=== PATIENT | female | born 1990 | race African-American/Black ===

== ENCOUNTER 2019-01-31 | Emergency (ER) | payer SELFPAY ==
--- NOTE | 2019-01-31 01:56 | ER Document Report ---
ED Medical Screen (RME) - General Chief Complaint: Sore Throat Stated Complaint: SORE THROAT Time Seen by Provider: 01/31/19 01:51 Mode of Arrival: Ambulatory Information source: Patient Notes: 28-year-old female comes in with report of 2-week history of pharyngitis with mild pain with swallowing and minimal cough and congestion. She is also had intermittent low-grade fevers. The patient questions being around someone who has had the flu 2 weeks ago. The patient denies any chest pain or difficulty breathing. She also had some pain left lower quadrant and some mild back pain more right greater than left. She denies any sharp pain and states pain is intermittent. No vaginal discharge or bleeding. Her last menstrual. Was January 20. The patient denies any neck stiffness. On exam throat does show some moderate tonsillar enlargement but no obvious abscess. Dentition intact. Neck shows anterior cervical adenopathy bilateral. Cardiovascular regular rate and rhythm without appreciable murmur gallop or rub Lungs clear to auscultation bilaterally Abdomen unable to reproduce any tenderness. There is no obvious mass. She describes her previous pain of left lower abdominal region but no current pain. Back mild right greater than left CVA discomfort. Impression viral pharyngitis but must rule out strep. The patient is beyond timeframe for treatment for the flu. Must also consider mono given the lymphadenopathy mentioned. No obvious spleno megaly appreciated. Abdomen completely nontender. Monospot, CBC, CMP strep test UA and test. See partners note for further evaluation and care. TRAVEL OUTSIDE OF THE [place] IN LAST 30 DAYS: No - Related Data Allergies/Adverse Reactions: No Known Allergies Allergy (Unverified 09/07/16 15:08) Past Medical History - Immunizations Hx Diphtheria, Pertussis, Tetanus Vaccination: Yes Physical Exam - Vital signs Vitals: Temp Pulse Resp BP Pulse Ox 98.2 F 82 20 144/90 H 99 01/31/19 00:34 01/31/19 00:34 01/31/19 00:34 01/31/19 00:34 01/31/19 00:34 Course - Vital Signs Vital signs: Temp Pulse Resp BP Pulse Ox 98.2 F 82 20 144/90 H 99 01/31/19 00:34 01/31/19 00:34 01/31/19 00:34 01/31/19 00:34 01/31/19 00:34
[2019-01-31 02:48] LABS: ABSOLUTE EOSINOPHILS # (AUTO) 0.2 10^3/uL (0.0-0.6); ABSOLUTE LYMPHOCYTES (AUTO) 1.3 10^3/uL (0.5-4.7); ABSOLUTE MONOCYTES (AUTO) 0.6 10^3/uL (0.1-1.4); ABSOLUTE NEUT (AUTO) 2.1 10^3/uL (1.7-8.2); BASOPHILS % (AUTO) 0.2 % (0-2); EOSINOPHILS % (AUTO) 4.4 % (0-6); HEMATOCRIT 33.7 % (36.0-47.0); LYMPHOCYTES % (AUTO) 30.6 % (13-45); MEAN CORPUSCULAR HEMOGLOBIN 26.8 pg (27.0-33.4); MEAN CORPUSCULAR HGB CONC 32.6 g/dL (32.0-36.0); MEAN CORPUSCULAR VOLUME 82 fl (80-97); MONOCYTES % (AUTO) 14.1 % (3-13); PLATELET COUNT 263 10^3/uL (150-450); RED BLOOD COUNT 4.09 10^6/uL (3.72-5.28); SEGMENTED NEUTROPHILS % (AUTO) 50.7 % (42-78); TOTAL CELLS COUNTED % (AUTO) 100 %; WHITE BLOOD COUNT 4.2 10^3/uL (4.0-10.5)
[2019-01-31 03:04] LABS: APPEARANCE,URINE SLIGHTLY-CLOUDY; BILIRUBIN,URINE NEGATIVE (NEGATIVE); COLOR,URINE YELLOW; GLUCOSE, URINE NEGATIVE (NEGATIVE); KETONES,URINE NEGATIVE (NEGATIVE); LEUKOCYTE ESTERASE,URINE NEGATIVE (NEGATIVE); NITRITE,URINE NEGATIVE (NEGATIVE); PROTEIN,URINE NEGATIVE (NEGATIVE); URINE SPECIFIC GRAVITY 1.025; UROBILINOGEN,URINE NEGATIVE mg/dL (<2.0)
[2019-01-31 03:08] LABS: ALANINE AMINOTRANSFERASE 29 U/L (9-52); ALBUMIN 3.9 g/dL (3.5-5.0); ALKALINE PHOSPHATASE 60 U/L (38-126); ANION GAP 9 (5-19); ASPARTATE AMINO TRANSFERASE 25 U/L (14-36); BILIRUBIN,DIRECT 0.2 mg/dL (0.0-0.4); BILIRUBIN,TOTAL 0.3 mg/dL (0.2-1.3); BLOOD UREA NITROGEN 11 mg/dL (7-20); CALCIUM 9.2 mg/dL (8.4-10.2); CARBON DIOXIDE 25 mmol/L (22-30); CHLORIDE 107 mmol/L (98-107); GLUCOSE 81 mg/dL (75-110); SODIUM 141.1 mmol/L (137-145)
[2019-01-31] MEDS ORDERED: DEXAMETHASONE SOD PHOS INJ 10 MG/1 ML VIAL IM ONE (03:57)
--- NOTE | 2019-01-31 04:01 | ER Document Report ---
HPI - HPI Time Seen by Provider: 01/31/19 01:51 Pain Level: 1 Context: Patient is a 28-year-old female that comes to the emergency department for chief complaint of sore throat, pain in the front of her neck, and intermittent chills. She reports mild congestion and occasional cough as well. Symptoms present for almost 2 weeks now. She states she was exposed to someone who had "the flu" about 2 weeks ago. She denies any chest pain, difficulty breathing, headache, abdominal pain, difficulty swallowing or breathing. She denies any current symptoms except for pain when she swallows. LMP 2 weeks ago. Only past medical history is anxiety/depression. - REPRODUCTIVE Reproductive: DENIES: : Past Medical History - General Information source: Patient - Social History Smoking Status: Never Smoker Frequency of alcohol use: None Drug Abuse: None Lives with: Family Family History: Reviewed & Not Pertinent Psychiatric Medical History: Reports: Hx Anxiety, Hx Depression - Immunizations Hx Diphtheria, Pertussis, Tetanus Vaccination: Yes Vertical Provider Document - CONSTITUTIONAL General Appearance: WD/WN, No Apparent Distress - INFECTION CONTROL TRAVEL OUTSIDE OF THE [place] IN LAST 30 DAYS: No - HEENT HEENT: Atraumatic, Normocephalic. negative: Normal ENT Exam - Mild erythema and enlargement of bilateral tonsils. Normal uvula. No peritonsillar abscess. Unremarkable oropharyngeal exam otherwise. Normal ENT exam otherwise. - NECK Neck: Other - Bilateral anterior cervical adenopathy - RESPIRATORY Respiratory: Breath Sounds Normal, No Respiratory Distress - CARDIOVASCULAR Cardiovascular: Regular Rate, Regular Rhythm - GI/ABDOMEN Gastrointestinal: Abdomen Soft, Abdomen Non-Tender - BACK Back: Normal Inspection - MUSCULOSKELETAL/EXTREMETIES Musculoskeletal/Extremeties: MAEW, FROM, Non-Tender - NEURO Level of Consciousness: Awake, Alert, Appropriate - DERM Integumentary: Warm, Dry, No Rash Course - Re-evaluation Re-evalutation: Evaluation shows tonsillitis and anterior cervical adenopathy. Otherwise unremarkable. No sign of splenomegaly. No evidence of abscess. CBC shows normal white blood cell count, elevation of monocytes. Chemistry unremarkable, urine unremarkable, negative. Strep is negative. [place] was negative. Evaluation is more consistent with a viral illness, possible mononucleosis. Discussed this with patient. Provided with dexamethasone, discussed precautions, expectations, and return precautions. Patient states understanding and agreement. - Vital Signs Vital signs: Temp Pulse Resp BP Pulse Ox 98.2 F 82 20 144/90 H 99 01/31/19 00:34 01/31/19 00:34 01/31/19 00:34 01/31/19 00:34 01/31/19 00:34 - Laboratory Result Diagrams: 01/31/19 02:30 01/31/19 02:30 Laboratory results interpreted by me: 01/31/19 02:30 Hgb 11.0 L Hct 33.7 L MCH 26.8 L RDW 15.0 H Monocytes % 14.1 H Discharge - Discharge Clinical Impression: Tonsillitis, Anterior cervical adenopathy Pharyngitis Qualifiers: Pharyngitis/tonsillitis etiology: unspecified etiology Qualified Code(s): J02.9 - Acute pharyngitis, unspecified Condition: Stable Disposition: HOME, SELF-CARE Additional Instructions: Your work-up is consistent with a viral cause of your tonsillitis, possibly mononucleosis. This takes time to resolve, you have been treated to help this resolve faster. Avoid any activity which could cause trauma to her abdomen because for the next several weeks trauma to the abdomen could result in rupture of your spleen. Return immediately if you have severe abdominal pain. Take [id number] medication such as Tylenol, ibuprofen. Drink plenty fluids and rest. Follow-up with primary care. Return for any other concerning or worsening symptoms.
[2019-01-31 04:45] VITALS: BP 147/87
== END 2019-01-31 04:46 | disposition home or self-care (01) ==
LOC: ER
DX: J02.9 Acute pharyngitis, unspecified (principal); R59.0 Localized enlarged lymph nodes; M54.2 Cervicalgia
CPT/HCPCS: 99283; 96372; 36415; 87070; 87880; 85025; 81025; 87077; 86308; 80053; 81001; J1100

== ENCOUNTER 2019-02-20 19:50 | Emergency (ER) | payer SELFPAY ==
--- NOTE | 2019-02-21 00:55 | ER Document Report ---
ED General - General Chief Complaint: Sore Throat Stated Complaint: SORE THROAT Time Seen by Provider: 02/21/19 00:18 Mode of Arrival: Ambulatory Information source: Patient TRAVEL OUTSIDE OF THE [place] IN LAST 30 DAYS: No - HPI Patient complains to provider of: Swollen tonsils, body ache, thirstiness, fatigue, rash, sore throat Onset: Other - 1 to 2 weeks Onset/Duration: Persistent Severity: Mild Pain Level: 2 Associated symptoms: Body/muscle aches, Sore throat. denies: Chills, Nonproductive cough, Productive cough, Diarrhea, Fever, Nausea, Vomiting Notes: 28-year-old -[place] female coming in today with swollen, thirstiness, fatigue, rash, sore throat. Hurts to swallow. Seen here a week ago. Tested for strep and mono. Both negative. Patient continues to have swollen tonsils. Also concerned about some sexual encounters that she had with some in while she was in a manic episode and not taking her bipolar meds. Wanting a test for HIV and other STDs. - Related Data Allergies/Adverse Reactions: No Known Allergies Allergy (Unverified 09/07/16 15:08) Past Medical History - General Information source: Patient - Social History Smoking Status: Smoker,Current Status Unk Family History: Reviewed & Not Pertinent Renal/ Medical History: Denies: Hx Peritoneal Dialysis Psychiatric Medical History: Reports: Hx Anxiety, Hx Depression - Immunizations Hx Diphtheria, Pertussis, Tetanus Vaccination: Yes Review of Systems - Review of Systems Notes: Constitutional: No fevers. No chills. Positive for fatigue, positive for malaise, positive for myalgias EENT: No eye redness. No eye pain. No ear pain. Positive for sore throat and swollen tonsils Cardiovascular: No chest pain. No palpitations. Respiratory: No cough. No shortness of breath. No respiratory distress. Gastrointestinal: No abdominal pain. No nausea, vomiting, or diarrhea. Genitourinary: Atraumatic. No lesions. No pain. No discharge. Musculoskeletal: Atraumatic. No swelling. No deformities. Skin: No rash or lesions. Lymphatic: No swollen lymph nodes. Neurologic: No headache. No syncope. Psychiatric: No suicidal or homicidal ideation. Physical Exam - Vital signs Vitals: Temp Pulse Resp BP Pulse Ox 98.8 F 82 16 146/94 H 100 02/20/19 20:43 02/20/19 20:43 02/20/19 20:43 02/20/19 20:43 02/20/19 20:43 - Notes Notes: General: Well-developed, well-nourished. In no acute distress. Non-toxic appearing. Cardiac: Well-perfused. Regular rate and rhythm. No murmurs, rubs, or gallops. Pulmonary: No respiratory distress. No cyanosis. Bilateral lung fiels are clear to auscultation. Abdominal: Non-distended. Non-rigid. Bowels sounds are present in all four quadrants. No guarding or rebound. HEENT: Head is atraumatic. Conjunctivae not reddened. No tearing. PERRL. EOMI. Orbits atraumatic. No periorbital swelling or erythema. Oropharynx is without erythema, swelling, or exudates. 2+ erythematous tonsils without exudates Neck: Supple. No adenopathy. No meningismus. Dermatologic: Warm with good turgor. No rash. Atraumatic. Chest: Atraumatic. No chest wall tenderness to palpation. Musculoskeletal: Moves all extremities well. No range of motion deficits. no muscular or joint tenderness. No paraspinal muscle tenderness. no midline spinal tenderness or step-off. Genitourinary: Examination deferred Neurologic: No gross neurologic deficits. Psychiatric: Normal mood. Course - Re-evaluation Re-evalutation: 02/21/19 01:54 Basic labs ordered, strep, mono, basic metabolic profile and CBC also. We will send a urinalysis for GC and chlamydia. I indicated that we do not typically test for all of the STDs. Recommended that she follow-up with the [facility] for that. She does not have any active symptoms of STDs just a concern over some choices that she made while she was not taking her bipolar meds. - Vital Signs Vital signs: Temp Pulse Resp BP Pulse Ox 98.6 F 78 16 142/92 H 100 02/21/19 01:50 02/21/19 01:50 02/21/19 01:50 02/21/19 01:50 02/21/19 01:50 - Laboratory Result Diagrams: 02/21/19 01:15 02/21/19 01:15 Discharge - Discharge Clinical Impression: Viral syndrome, Swelling of tonsil, History of unprotected sex Condition: Good Disposition: HOME, SELF-CARE Instructions: Viral Syndrome ([facility]), Tonsillitis ([facility]) Additional Instructions: Please follow-up for further testing in the [facility]. Prescriptions: Naproxen 500 mg PO BID 5 Days #10 tablet Prednisone 50 mg PO DAILY #5 tablet Referrals: [facility] [Provider Group] - Follow up as needed
[2019-02-21 01:51] VITALS: BP 142/92
[2019-02-21 02:01] LABS: APPEARANCE,URINE SLIGHTLY-CLOUDY; BILIRUBIN,URINE NEGATIVE (NEGATIVE); COLOR,URINE YELLOW; GLUCOSE, URINE NEGATIVE (NEGATIVE); KETONES,URINE NEGATIVE (NEGATIVE); LEUKOCYTE ESTERASE,URINE NEGATIVE (NEGATIVE); NITRITE,URINE NEGATIVE (NEGATIVE); PROTEIN,URINE NEGATIVE (NEGATIVE); URINE SPECIFIC GRAVITY 1.015; UROBILINOGEN,URINE NEGATIVE mg/dL (<2.0)
[2019-02-21 02:01] LABS: HEMATOCRIT 33.7 % (36.0-47.0); HEMOGLOBIN 10.9 g/dL (12.0-15.5); MEAN CORPUSCULAR HEMOGLOBIN 26.5 pg (27.0-33.4); MEAN CORPUSCULAR HGB CONC 32.2 g/dL (32.0-36.0); MEAN CORPUSCULAR VOLUME 82 fl (80-97); RED CELL DISTRIBUTION WIDTH 15.1 % (11.5-14.0); WHITE BLOOD COUNT 2.7 10^3/uL (4.0-10.5)
[2019-02-21 02:15] LABS: ANION GAP 8 (5-19); BLOOD UREA NITROGEN 10 mg/dL (7-20); CALCIUM 9.2 mg/dL (8.4-10.2); CARBON DIOXIDE 25 mmol/L (22-30); CHLORIDE 105 mmol/L (98-107); GLUCOSE 82 mg/dL (75-110); POTASSIUM 3.7 mmol/L (3.6-5.0); SODIUM 138.3 mmol/L (137-145)
[2019-02-21 02:16] LABS: ABSOLUTE MONOCYTES # (MANUAL) 0.5 10^3/uL (0.1-1.4); ABSOLUTE NEUTROPHILS# (MANUAL) 1.2 10^3/uL (1.7-8.2); ANISOCYTOSIS SLIGHT; BASOPHILS % (MANUAL) 0 % (0-2); EOSINOPHILS % (MANUAL) 1 % (0-6); LYMPHOCYTES % (MANUAL) 37 % (13-45); MONOCYTES % (MANUAL) 17 % (3-13); PLATELET CLUMPS PRESENT; PLATELET COMMENT ADEQUATE; SEGMENTED NEUTROPHILS % (MAN) 44 % (42-78); TOTAL CELLS COUNTED 100
[2019-02-21 02:17] LABS: PLATELET COUNT 237 10^3/uL (150-450)
== END 2019-02-21 02:55 | disposition home or self-care (01) ==
LOC: ER 19:50
DX: J35.1 Hypertrophy of tonsils (principal); B34.9 Viral infection, unspecified; Z20.2 Contact with and (suspected) exposure to infections with a predominantly sexual mode of transmission; J02.9 Acute pharyngitis, unspecified; R63.1 Polydipsia; R53.83 Other fatigue; R21 Rash and other nonspecific skin eruption; M79.10 Myalgia, unspecified site; R53.81 Other malaise
CPT/HCPCS: 36415; 80048; 81001; 85025; 86308; 87070; 87077; 87880; 99283

== ENCOUNTER 2019-04-03 11:18 | Emergency (ER) | payer MEDICAID ==
[2019-04-03 11:29] VITALS: BP 105/52
--- NOTE | 2019-04-03 11:34 | ER Document Report ---
ED Medical Screen (RME) - General Chief Complaint: Suicidal Ideation Stated Complaint: SUICIDAL IDEATION Time Seen by Provider: 04/03/19 11:27 Mode of Arrival: Ambulatory Information source: Patient Notes: 28-year-old female presented to ED for thoughts of suicide. She states she has not made a plan yet but she has had thoughts of suicide. She states she has had thoughts of suicide in the past. She states she recently lost her job she is having problems at home and then she was about 10 minutes late for her doctor's appointment and they said she had to reschedule with me she is now we will have her medications and things are going to just get a month not worse and she is just thinking about injecting. She said there is too much going on right now she cannot handle it. Patient is very tearful at this time. I have greeted and performed a rapid initial assessment of this patient. A comprehensive ED assessment and evaluation of the patient, analysis of test results and completion of medical decision making process will be conducted by an additional ED providers. Dictation of this chart was performed using voice recognition software; therefore, there may be some unintended grammatical errors. TRAVEL OUTSIDE OF THE [place] IN LAST 30 DAYS: No - Related Data Allergies/Adverse Reactions: No Known Allergies Allergy (Verified 04/03/19 11:20) Past Medical History Renal/ Medical History: Denies: Hx Peritoneal Dialysis Psychiatric Medical History: Reports: Hx Anxiety, Hx Bipolar Disorder, Hx Depression - Immunizations Hx Diphtheria, Pertussis, Tetanus Vaccination: Yes
[2019-04-03 12:00] LABS: ABSOLUTE EOSINOPHILS # (AUTO) 0.1 10^3/uL (0.0-0.6); ABSOLUTE LYMPHOCYTES (AUTO) 1.3 10^3/uL (0.5-4.7); ABSOLUTE MONOCYTES (AUTO) 0.4 10^3/uL (0.1-1.4); ABSOLUTE NEUT (AUTO) 2.7 10^3/uL (1.7-8.2); BASOPHILS % (AUTO) 0.4 % (0-2); EOSINOPHILS % (AUTO) 1.4 % (0-6); HEMATOCRIT 33.2 % (36.0-47.0); HEMOGLOBIN 10.9 g/dL (12.0-15.5); LYMPHOCYTES % (AUTO) 29.3 % (13-45); MEAN CORPUSCULAR HEMOGLOBIN 27.2 pg (27.0-33.4); MEAN CORPUSCULAR HGB CONC 32.9 g/dL (32.0-36.0); MEAN CORPUSCULAR VOLUME 83 fl (80-97); MONOCYTES % (AUTO) 8.1 % (3-13); PLATELET COUNT 295 10^3/uL (150-450); RED BLOOD COUNT 4.02 10^6/uL (3.72-5.28); RED CELL DISTRIBUTION WIDTH 15.2 % (11.5-14.0); SEGMENTED NEUTROPHILS % (AUTO) 60.8 % (42-78); TOTAL CELLS COUNTED % (AUTO) 100 %; WHITE BLOOD COUNT 4.4 10^3/uL (4.0-10.5)
[2019-04-03 12:06] LABS: APPEARANCE,URINE CLOUDY; BILIRUBIN,URINE NEGATIVE (NEGATIVE); COLOR,URINE YELLOW; GLUCOSE, URINE NEGATIVE (NEGATIVE); KETONES,URINE NEGATIVE (NEGATIVE); LEUKOCYTE ESTERASE,URINE TRACE (NEGATIVE); NITRITE,URINE NEGATIVE (NEGATIVE); PROTEIN,URINE 30 mg/dL (NEGATIVE); URINE SPECIFIC GRAVITY 1.024; UROBILINOGEN,URINE NEGATIVE mg/dL (<2.0)
[2019-04-03 12:19] LABS: URINE AMPHETAMINES SCREEN NEGATIVE; URINE BARBITURATES SCREEN NEGATIVE; URINE BENZODIAZEPINES SCREEN NEGATIVE; URINE COCAINE SCREEN NEGATIVE; URINE MARIJUANA (THC) SCREEN UNCONFIRMED POSITIVE; URINE METHADONE SCREEN NEGATIVE; URINE PHENCYCLIDINE SCREEN NEGATIVE
[2019-04-03 12:26] LABS: ALANINE AMINOTRANSFERASE 21 U/L (9-52); ALBUMIN 4.5 g/dL (3.5-5.0); ALKALINE PHOSPHATASE 52 U/L (38-126); ANION GAP 10 (5-19); ASPARTATE AMINO TRANSFERASE 25 U/L (14-36); BILIRUBIN,DIRECT 0.2 mg/dL (0.0-0.4); BLOOD UREA NITROGEN 12 mg/dL (7-20); CALCIUM 9.7 mg/dL (8.4-10.2); CARBON DIOXIDE 24 mmol/L (22-30); CHLORIDE 106 mmol/L (98-107); GLUCOSE 73 mg/dL (75-110); POTASSIUM 3.9 mmol/L (3.6-5.0); SODIUM 139.6 mmol/L (137-145); TOTAL PROTEIN 7.4 g/dL (6.3-8.2)
[2019-04-03 12:27] LABS: ACETAMINOPHEN < 10 ug/mL (10-30); ALCOHOL < 10 mg/dL (NONE DETECTED); SALICYLATE < 1.0 mg/dL (2.0-20.0)
--- NOTE | 2019-04-03 13:33 | ER Document Report ---
Entered by DALIA ARRIAGA SCRIBE 04/03/19 1241 Acting as scribe for:KUSH RAY MD ED General <ALEXX WOLF - Last Filed: 04/03/19 13:38> - General Mode of Arrival: Ambulatory TRAVEL OUTSIDE OF THE [place] IN LAST 30 DAYS: No <KUSH RAY - Last Filed: 04/03/19 14:07> - General Chief Complaint: Suicidal Ideation Stated Complaint: SUICIDAL IDEATION Time Seen by Provider: 04/03/19 11:27 Primary Care Provider: [facility] [Outside] - Follow up as needed [facility] [Outside] - 04/17/19 (Therapy appoitnment at [facility] on 04/08/19 at 1500.) IDALIA SAINZ MD [Primary Care Provider] - Follow up as needed Notes: Patient is a 28-year-old female presenting to the emergency department complaining of depression. Patient states that she had an appointment today to refill her medication she is currently taking for depression, she missed her appointment. Patient states that she is currently taking Celexa and Lamictal and that she is close to running out. Patient states that she was recently fired from her job at [employer], and that she has been having a lot of arguments at home with family. Patient states that she stays in a 3 bedroom apartment with her 10-year-old child, her brother and [id number]. Patient states that her last menstrual period was 2 weeks ago. (DALIA ARRIAGA) Patient is a 28-year-old female presenting to the emergency department complaining of depression. Patient states that she had an appointment today to refill her medication she is currently taking for depression, she missed her appointment. Patient states that she is currently taking Celexa and Lamictal and that she is close to running out. Patient states that she was recently fired from her job at [employer], and that she has been having a lot of arguments at home with family. Patient states that she stays in a 3 bedroom apartment with h er 10-year-old child, her brother and [id number]. Patient states that her last menstrual period was 2 weeks ago. (KUSH RAY) - Related Data Allergies/Adverse Reactions: No Known Allergies Allergy (Verified 04/03/19 11:20) Past Medical History - General Information source: Patient - Social History Smoking Status: Never Smoker Chew tobacco use (# tins/day): No Frequency of alcohol use: None Drug Abuse: Marijuana Family History: Reviewed & Not Pertinent Patient has suicidal ideation: No Patient has homicidal ideation: No Psychiatric Medical History: Reports: Hx Anxiety, Hx Bipolar Disorder, Hx Depression Past Surgical History: Reports: Hx Orthopedic Surgery - right leg x 2 - Immunizations Hx Diphtheria, Pertussis, Tetanus Vaccination: Yes <KUSH RAY - Last Filed: 04/03/19 14:07> Review of Systems - Review of Systems Constitutional: No symptoms reported EENT: No symptoms reported Cardiovascular: No symptoms reported Respiratory: No symptoms reported Gastrointestinal: No symptoms reported Genitourinary: No symptoms reported Female Genitourinary: No symptoms reported Musculoskeletal: No symptoms reported Skin: No symptoms reported Hematologic/Lymphatic: No symptoms reported Neurological/Psychological: See HPI, Depression -: Yes All other systems reviewed and negative <KUSH RAY - Last Filed: 04/03/19 14:07> Physical Exam <KUSH RAY - Last Filed: 04/03/19 14:07> - Vital signs Vitals: Temp Pulse Resp BP Pulse Ox 99.1 F 109 H 18 105/52 L 97 04/03/19 11:27 04/03/19 11:27 04/03/19 11:27 04/03/19 11:27 04/03/19 11:27 - Notes Notes: Physical Exam: General: Alert, depressed, tearful. HEENT: Normocephalic. Atraumatic. PERRL. Extraocular movements intact. Oropharynx clear. Neck: Supple. Non-tender. Respiratory: No respiratory distress. Clear and equal breath sounds bilaterally. Cardiovascular: Regular rate and rhythm. Abdominal: Normal Inspection. Non-tender. No distension. Normal Bowel Sounds. Back: Non-tender. No deformity or step off. Extremities: Moves all four extremities. Upper extremities: Normal inspection. Normal ROM. Lower extremities: Normal inspection. No edema. Normal ROM. Neurological: Depressed. AAOx4. Normal speech. Psychological: Normal affect. Normal Mood. Skin: Warm. Dry. Normal color. (DALIA ARRIAGA) Physical Exam: General: Alert, depressed, tearful. HEENT: Normocephalic. Atraumatic. PERRL. Extraocular movements intact. Oropharynx clear. Neck: Supple. Non-tender. Respiratory: No respiratory distress. Clear and equal breath sounds bilaterally. Cardiovascular: Regular rate and rhythm. Abdominal: Normal Inspection. Non-tender. No distension. Normal Bowel Sounds. Back: Non-tender. No deformity or step off. Extremities: Moves all four extremities. Upper extremities: Normal inspection. Normal ROM. Lower extremities: Normal inspection. No edema. Normal ROM. Neurological: Depressed. AAOx4. Normal speech. Psychological: Normal affect. Normal Mood. Skin: Warm. Dry. Normal color. (KUSH RAY) Course - Laboratory Result Diagrams: 04/03/19 11:41 04/03/19 11:41 <ALEXX WOLF - Last Filed: 04/03/19 13:38> - Laboratory Result Diagrams: 04/03/19 11:41 04/03/19 11:41 <KUSH RAY - Last Filed: 04/03/19 14:07> - Vital Signs Vital signs: Temp Pulse Resp BP Pulse Ox 99.1 F 109 H 18 105/52 L 97 04/03/19 11:27 04/03/19 11:27 04/03/19 11:27 04/03/19 11:27 04/03/19 11:27 - Laboratory Laboratory results interpreted by me: 04/03/19 04/03/19 04/03/19 11:41 11:41 11:41 Hgb 10.9 L Hct 33.2 L RDW 15.2 H Est GFR (Non-Af Amer) 53 L Glucose 73 L Urine Protein 30 H Ur Leukocyte Esterase TRACE H Salicylates < 1.0 L Acetaminophen < 10 L Discharge <ALEXX WOLF - Last Filed: 04/03/19 13:38> <KUSH RAY - Last Filed: 04/03/19 14:07> - Discharge Clinical Impression: Passive suicidal ideations, Situational stress, History of bipolar disorder Depression Qualifiers: Depression Type: unspecified Qualified Code(s): F32.9 - Major depressive disorder, single episode, unspecified Condition: Stable Disposition: HOME, SELF-CARE Additional Instructions: You have been evaluated by both medical and behavioral health providers while in the emergency department. You have been cleared from both acute medical and psychiatric services. You have reported social factors that have increased stress and depression. In addition you had concern today after being just 10 minutes late to your medication appointment at [facility] and them rescheduling you which will put you out of medication for 2 weeks. You have been provided prescriptions to last until your rescheduled appointment. DEPRESSION: (situational factors cause stress and increase depression, stress can cause and/or exacerbate Bipolar symptoms as well) Your evaluation reveals that you have mental depression. While symptoms may be vague, they often include disturbance of sleep, fatigue, loss of appetite, and general loss of interest in life. While depression may be a side effect of drugs, or a reaction to a major change in your life, many cases have no known cause. If depression is acute, and related to a major loss in your life, you can expect it to clear completely with time. If you have been depressed a long time, are prone to repeated bouts of depression or low mood, or have been thinking of suicide, get help. Depression can be treated with anti-depressant medication and counselling. Long-term depression will often take a few weeks to clear, even with appropriate medication. Follow-up care is important. SUICIDAL IDEATION: Suicidal ideation is a common medical term for thoughts about suicide, which may be as detailed as a formulated plan, without the suicidal act itself. Although most people who undergo suicidal ideation do not commit suicide, some go on to make suicide attempts. The range of suicidal ideation varies greatly from fleeting to detailed planning, role playing, and unsuccessful attempts. While thoughts about suicide are common, most people do not carry out serious actions to commit suicide. Based upon your evaluation and discussion with you, we do not believe you are currently at risk to act upon your thoughts of suicide. You have agreed to return to the Emergency Department, at any time, if you feel inclined to act upon your suicidal thoughts. FOLLOW-UP CARE: You reported your outpatient provider is [facility]. You have a therapy appointment on 04/08/19 at 1500. You have a medication management appointment on 04/17/19. You have been provided prescriptions for your medications of Celexa 20MG daily and Lamictal 50MG daily. You should make sure you make your next appointment at [facility] on time. You have also been provided the [facility] Mobile Crisis number for crisis, talk therapy and linkage to other supports/services. If you experience worsening or a significant change in your symptoms, notify the physician immediately, utilize mobile crisis or return to the Emergency Department at any time for re-evaluation. Prescriptions: Citalopram Hydrobromide [Celexa 20 mg Tablet] 20 mg PO DAILY #14 tablet Lamotrigine [Lamictal] 50 mg PO DAILY #28 tablet Referrals: IDALIA SAINZ MD [Primary Care Provider] - Follow up as needed [facility] [Outside] - Follow up as needed [facility] [Outside] - 04/17/19 (Therapy appoitnment at [facility] on 04/08/19 at 1500.) Scribe Attestation: 04/03/19 12:41 I personally performed the services described in the documentation, reviewed and edited the documentation which was dictated to the scribe in my presence, and it accurately records my words and actions. (DALIA ARRIAGA) 04/03/19 12:41 I personally performed the services described in the documentation, reviewed and edited the documentation which was dictated to the scribe in my presence, and it accurately records my words and actions. (KUSH RAY) I personally performed the services described in the documentation, reviewed and edited the documentation which was dictated to the scribe in my presence, and it accurately records my words and actions.
--- NOTE | 2019-04-03 14:33 | PSYCHOLOGICAL NOTE ---
Psych Note - Psych Note Date seen by psych provider: 04/03/19 Psych Note: Presenting Problem: SI, no intent, initially told triage and other medical staff no plan, stated to this clinician she has a plan, was adamant "I'm not going to do it," and said she thought about putting weights on her ankles and wrists then walking into a pool. Coordinated with Cheri at [facility]. She confirmed patient has an appointment for therapy on 04/08/19 at 1500 and medication appointment on 04/17/19. She reported patient's medications were: Celexa 20MG QD and Trileptal 25MG QD for 14 days then 50MG QD for 14 days. Diagnosis: 296.80 (F31.9) Unspecified Bipolar and Related Disorder by history per patient 300.00 (F41.90 Unspecified Anxiety Related Disorder by history per patient Impression/Plan: Patient is cleared from acute psychiatric services. She denied intent for SI, admitted to thoughts and plan but stated she was not going to, denied previous attempts and admitted to recent social stressors (lost job, living with brother, his family and her 10 year old son). She had a medication management appointment at [facility] today, was 10 minutes late, they rescheduled appointment and that will put her at 2 weeks without medication. Confirmed appointment dates and medications with [facility]. Patient provided with prescriptions of current medications to last until 04/17/19 medication appointment. Provided patient with the outpatient MH resource sheet which documented appointment dates and times, as well as highlighted [facility] MCM for crisis/talk therapy/linkage to other supports and services. Encouraged patient if her symptoms persist or worsen to utilize MCM or return to the ED. Consulted with Dr. Nails regarding the management and care of patient. ED Physician in agreement with recommendations.
--- NOTE | 2019-04-03 22:59 | EKG REPORT ---
SEVERITY:- OTHERWISE NORMAL ECG - SINUS TACHYCARDIA : Confirmed by: Milka Corley 03-Apr-2019 22:58:21
== END 2019-04-03 14:54 | disposition home or self-care (01) ==
LOC: ER 11:18
DX: R45.851 Suicidal ideations (principal); F43.9 Reaction to severe stress, unspecified; F32.9 Major depressive disorder, single episode, unspecified; Z79.899 Other long term (current) drug therapy; Z63.8 Other specified problems related to primary support group; F12.10 Cannabis abuse, uncomplicated; Z86.59 Personal history of other mental and behavioral disorders
CPT/HCPCS: 36415; 80053; 80307; 81001; 84703; 85025; 93005; 93010; 99285

== ENCOUNTER 2019-05-27 18:40 | Inpatient (IN) | payer MEDICAID ==
[2019-05-27] MEDS ORDERED: ACETYLCYSTEINE INJ 6000 MG/30 ML IV ONE ×3 (19:04→20:06)
--- NOTE | 2019-05-27 19:11 | ER Document Report ---
ED General - General Chief Complaint: Overdose Stated Complaint: PSYCH Time Seen by Provider: 05/27/19 18:55 Notes: Patient is a 28-year-old female with bipolar disorder that presents to the emergency department for chief complaint of intentional overdose of acetaminophen. Patient reports that she took approximately 50 tablets of 500 mg extra strength Tylenol, less than 2 hours prior to ED arrival, EMS gave her 500 mL's of normal saline and 80 mg of charcoal, which did not induce any vomiting. She denies having any abdominal pain, or nausea at this time, she is very flat and a poor historian, not wanting to engage in conversation at this time. 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 She denies prior history of suicide attempt. She admits to smoking marijuana, but denies any alcohol tobacco or illicit drug use otherwise. She denies access to firearms. She states she is currently on medications for both anxiety and bipolar disorder. She denies any homicidal ideations, denies any current and active hallucinations. Past Medical History: Bipolar disorder, anxiety Past Surgical History: Leg surgery Social History: Admits to smoking marijuana, denies alcohol or tobacco use. Family History: Reviewed and noncontributory for presenting illness Allergies: Reviewed, see documented allergy list. REVIEW OF SYSTEMS: Other than noted above, the 12 point review of systems was reviewed with the patient and were negative, all pertinent findings are included in the HPI. PHYSICAL EXAMINATION: Vital signs reviewed, nursing noted reviewed. GENERAL: Well-appearing, well-nourished and in no acute distress. Flat affect HEAD: Atraumatic, normocephalic. EYES: Eyes appear normal, extraocular movements intact, sclera anicteric, conjunctiva are normal. ENT: nares patent, oropharynx clear without exudates. Moist mucous membranes. NECK: Normal range of motion, supple without lymphadenopathy LUNGS: Breath sounds clear to auscultation bilaterally and equal. No wheezes rales or rhonchi. HEART: Regular rate and rhythm without murmurs ABDOMEN: Soft, nontender, normoactive bowel sounds. No rebound, guarding, or rigidity. No masses appreciated. EXTREMITIES: Nontender, good range of motion, no pitting or edema. NEUROLOGICAL: No focal neurological deficits. Moves all extremities spontaneously Motor and sensory grossly intact on exam. PSYCH: Flat affect, somewhat dysphoric mood, poor eye contact, not answering questions or engaging in conversation, no tangential thinking at this time. SKIN: Warm, Dry, normal turgor, no rashes or lesions noted on exposed skin TRAVEL OUTSIDE OF THE [place] IN LAST 30 DAYS: No - Related Data Allergies/Adverse Reactions: No Known Allergies Allergy (Verified 04/03/19 11:20) Past Medical History - Social History Smoking Status: Never Smoker Family History: Reviewed & Not Pertinent Patient has suicidal ideation: Yes Patient has homicidal ideation: No Renal/ Medical History: Denies: Hx Peritoneal Dialysis Psychiatric Medical History: Reports: Hx Anxiety, Hx Bipolar Disorder, Hx Depression Past Surgical History: Reports: Hx Orthopedic Surgery - right leg x 2 - Immunizations Hx Diphtheria, Pertussis, Tetanus Vaccination: Yes Physical Exam - Vital signs Vitals: Resp Pulse Ox 22 H 100 05/27/19 19:02 05/27/19 19:02 Course - Re-evaluation Re-evalutation: Patient seen and examined vital signs reviewed. Laboratory data and imaging were ordered as appropriate for the patient's presenting symptoms and complaint, with consideration of any critical or life threatening conditions that may be associated with their obtained history and exam as noted above. Patient was treated with N-acetylcysteine, 13,000 mg, for initial dosing, and then the subsequent dosings were ordered., Given patient states she ingested ne trent 25 g of Tylenol, did not wait for Tylenol levels, just treated immediately, her Tylenol level did come back at 113, no salicylates or alcohol noted, she was noted to be anemic, 7.9 hemoglobin, otherwise unremarkable blood work. At this point I called [facility], to discuss with her hepatology team, and spoke with Dr. Da Silva, who thought at this time, given that the patient was presenting early on after her ingestion, and received N-acetylcysteine early, that she can be monitored at our institution, and he would consult, with the hospitalist team tomorrow, he recommended twice daily LFTs, and twice daily INRs to monitor her progress. The patient was re-evaluated and was hemodynamically stable, alert and oriented. Evaluation was most consistent with acute Tylenol ingestion and toxicity. Results were discussed with the patient at this point after careful consideration I feel that that patient should be admitted to the hospital. This was discussed with the patient that it is in the best interest for their care to be admitted for further evaluation and management. Patient agreed with this plan of care. A call was placed to the admitting physician, [] who graciously accepted the patient onto their service. *Note is created using voice recognition software and may contain spelling, syntax or grammatical errors. Laboratory 05/27/19 05/27/19 05/27/19 19:05 19:05 19:05 WBC 6.2 RBC 2.97 L Hgb 7.9 L Hct 24.2 L MCV 81 MCH 26.4 L MCHC 32.5 RDW 14.9 H Plt Count 306 Seg Neutrophils % 59.6 Lymphocytes % 31.1 Monocytes % 6.4 Eosinophils % 2.6 Basophils % 0.3 Absolute Neutrophils 3.7 Absolute Lymphocytes 1.9 Absolute Monocytes 0.4 Absolute Eosinophils 0.2 Absolute Basophils 0.0 PT INR Sodium 136.8 L Potassium 3.9 Chloride 106 Carbon Dioxide 25 Anion Gap 6 BUN 9 Creatinine 0.84 Est GFR ( Amer) > 60 Est GFR (Non-Af Amer) > 60 Glucose 104 Calcium 8.6 Total Bilirubin 0.5 Direct Bilirubin 0.3 Neonat Total Bilirubin Not Reportable Neonat Direct Bilirubin Not Reportable Neonat Indirect Bili Not Reportable AST 33 ALT 16 Alkaline Phosphatase 40 Total Protein 6.7 Albumin 3.8 Serum HCG, Qual NEGATIVE Salicylates < 1.0 L Acetaminophen 113 H* Serum Alcohol < 10 05/27/19 19:05 WBC RBC Hgb Hct MCV MCH MCHC RDW Plt Count Seg Neutrophils % Lymphocytes % Monocytes % Eosinophils % Basophils % Absolute Neutrophils Absolute Lymphocytes Absolute Monocytes Absolute Eosinophils Absolute Basophils PT 13.2 INR 1.00 Sodium Potassium Chloride Carbon Dioxide Anion Gap BUN Creatinine Est GFR ( Amer) Est GFR (Non-Af Amer) Glucose Calcium Total Bilirubin Direct Bilirubin Neonat Total Bilirubin Neonat Direct Bilirubin Neonat Indirect Bili AST ALT Alkaline Phosphatase Total Protein Albumin Serum HCG, Qual Salicylates Acetaminophen Serum Alcohol - Vital Signs Vital signs: Temp Pulse Resp BP Pulse Ox 98 F 19 115/53 L 100 05/27/19 20:01 05/27/19 20:01 05/27/19 20:01 05/27/19 20:01 - Laboratory Result Diagrams: 05/27/19 19:05 05/27/19 19:05 Laboratory results interpreted by me: 05/27/19 05/27/19 19:05 19:05 RBC 2.97 L Hgb 7.9 L Hct 24.2 L MCH 26.4 L RDW 14.9 H Sodium 136.8 L Salicylates < 1.0 L Acetaminophen 113 H* - EKG Interpretation by Me Additional EKG results interpreted by me: EKG demonstrates sinus rhythm with a ventricular rate of 70 bpm, normal axis, normal intervals, no evidence of acute ischemia in this EKG, this is compared to prior EKG from 04/03/2018, at that time patient was noted to be mildly tachycardic, otherwise no significant change. Critical Care Note - Critical Care Note Total time excluding time spent on procedures (mins): 38 Comments: Critical care time 38 minutes exclusive from separate billable procedures for a patient requiring complex medical decision making, and high potential for clinical deterioration. In a patient with acute Tylenol ingestion, at toxic levels. Time spent obtaining history from patient or surrogate, discussions with consultants, development of treatment plan with patient or surrogate, evaluation of patient's response to treatment, examination of patient, ordering and performing treatments and interventions, ordering and review of laboratory studies, re-evaluation of patient's condition, ordering and review of radiographic studies and review of old charts Discharge - Discharge Clinical Impression: Suicide attempt Acetaminophen overdose Qualifiers: Encounter type: initial encounter Injury intent: intentional self-harm Qualified Code(s): T39.1X2A - Poisoning by 4-Aminophenol derivatives, intentional self-harm, initial encounter Condition: Serious Disposition: ADMITTED INPATIENT Admitting Provider: Janelle (Hospitalist) Unit Admitted: ICU
[2019-05-27 19:23] LABS: ABSOLUTE EOSINOPHILS # (AUTO) 0.2 10^3/uL (0.0-0.6); ABSOLUTE LYMPHOCYTES (AUTO) 1.9 10^3/uL (0.5-4.7); ABSOLUTE MONOCYTES (AUTO) 0.4 10^3/uL (0.1-1.4); ABSOLUTE NEUT (AUTO) 3.7 10^3/uL (1.7-8.2); BASOPHILS % (AUTO) 0.3 % (0-2); EOSINOPHILS % (AUTO) 2.6 % (0-6); HEMATOCRIT 24.2 % (36.0-47.0); LYMPHOCYTES % (AUTO) 31.1 % (13-45); MEAN CORPUSCULAR HEMOGLOBIN 26.4 pg (27.0-33.4); MEAN CORPUSCULAR HGB CONC 32.5 g/dL (32.0-36.0); MEAN CORPUSCULAR VOLUME 81 fl (80-97); MONOCYTES % (AUTO) 6.4 % (3-13); PLATELET COUNT 306 10^3/uL (150-450); PROTHROMBIN TIME 13.2 SEC (11.4-15.4); RED BLOOD COUNT 2.97 10^6/uL (3.72-5.28); RED CELL DISTRIBUTION WIDTH 14.9 % (11.5-14.0); SEGMENTED NEUTROPHILS % (AUTO) 59.6 % (42-78); TOTAL CELLS COUNTED % (AUTO) 100 %; WHITE BLOOD COUNT 6.2 10^3/uL (4.0-10.5)
[2019-05-27 19:26] LABS: HEMOGLOBIN 7.9 g/dL (12.0-15.5)
[2019-05-27 19:40] LABS: ALBUMIN 3.8 g/dL (3.5-5.0); ALKALINE PHOSPHATASE 40 U/L (38-126); ANION GAP 6 (5-19); ASPARTATE AMINO TRANSFERASE 33 U/L (14-36); BILIRUBIN,DIRECT 0.3 mg/dL (0.0-0.4); BILIRUBIN,TOTAL 0.5 mg/dL (0.2-1.3); BLOOD UREA NITROGEN 9 mg/dL (7-20); CALCIUM 8.6 mg/dL (8.4-10.2); CARBON DIOXIDE 25 mmol/L (22-30); CHLORIDE 106 mmol/L (98-107); GLUCOSE 104 mg/dL (75-110); POTASSIUM 3.9 mmol/L (3.6-5.0); TOTAL PROTEIN 6.7 g/dL (6.3-8.2)
[2019-05-27 19:51] LABS: ALCOHOL < 10 mg/dL (NONE DETECTED); SALICYLATE < 1.0 mg/dL (2.0-20.0)
[2019-05-27 19:54] LABS: ACETAMINOPHEN 113 ug/mL (10-30)
--- NOTE | 2019-05-27 19:55 | EKG REPORT ---
SEVERITY:- NORMAL ECG - SINUS RHYTHM : Confirmed by: Racheal Real MD 27-May-2019 19:55:11
[2019-05-27] MEDS ORDERED: ONDANSETRON HCL INJ/PF 4 MG/2 ML SDV IV ONE (20:50)
[2019-05-27] MEDS ORDERED: MAGNESIUM HYDROXIDE SUSP 30 ML UDCUP PO PRN (21:54)
[2019-05-27] MEDS ORDERED: NALBUPHINE HCL INJ 10 MG/1 ML AMPULE IV PRN (21:54)
[2019-05-27] MEDS ORDERED: MAG HYDROX/AL HYDROX/SIMETH SUSP 30 ML UDCUP PO PRN (21:54)
[2019-05-27] MEDS ORDERED: ACETAMINOPHEN 325 MG TABLET PO PRN (21:54)
[2019-05-27] MEDS ORDERED: ONDANSETRON HCL INJ/PF 4 MG/2 ML SDV IV PRN (21:55)
[2019-05-27] MEDS ORDERED: ACETYLCYSTEINE INJ 6000 MG/30 ML IV PRN (22:37)
--- NOTE | 2019-05-27 23:27 | PDOC H&P ---
History of Present Illness Admission Date/PCP: 05/27/19 20:50 No local PCP Patient complains of: Intentional acetaminophen overdose History of Present Illness: XAVIER BANKS is a 28 year old female who presented to the emergency room with an acute intentional overdose by ingestion of acetaminophen. She admits to taking 5500 mg extra strength Tylenol at approximately 17:30 this afternoon. S he is unable/unwilling to explain her reasoning for the intentional overdose. She is withdrawn/evasive, does not make eye contact and has a very flat affect. No additional current history information can be obtained at this time. In the emergency room she was found to have an elevated acetaminophen level of greater than 100 with a 4-hour level being scheduled and patient was initiated on an IV Mucomyst protocol. She was subsequently admitted to the [facility] for further evaluation and treatment. Past Medical History Cardiac Medical History: Denies: Coronary Artery Disease, Hypertension Pulmonary Medical History: Denies: Asthma, Chronic Obstructive Pulmonary Disease (COPD) EENT Medical History: Denies: Cataracts, Nose - Allergic rhinitis Neurological Medical History: Denies: Multiple Sclerosis, Seizures Endocrine Medical History: Reports: Obesity Denies: Diabetes Mellitus Type 1, Diabetes Mellitus Type 2, Hyperthyroidism, Hypothyroidism Renal/ Medical History: Denies: Chronic Kidney Disease, Nephrolithiasis Malignancy Medical History: Reports: None GI Medical History: Denies: Cirrhosis, Hepatitis Musculoskeltal Medical History: Reports: Other - right leg fracture Denies: Arthritis, Fibromyalgia Skin Medical History: Denies: Eczema, Psoriasis Psychiatric Medical History: Reports: Bipolar Disorder, Depression, General Anxiety Disorder, Substance Abuse, Other - Suicidal ideation without attempt Denies: Alcohol Dependency, Tobacco Dependency Traumatic Medical History: Reports: None Hematology: Denies: Anemia, Bleeding Tendencies Infectious Medical History: Reports: None Past Surgical History Past Surgical History: Reports: Orthopedic Surgery - right leg x 2, medullary irene placement and later removal to treat fracture Social History Information Source: Patient Lives with: Family Smoking Status: Never Smoker Frequency of Alcohol Use: None Hx Recreational Drug Use: Yes Drugs: Marijuana Hx Prescription Drug Abuse: No - Advance Directive Resuscitation Status: Full Code Surrogate healthcare decision maker:: None provided Family History Family History: CAD, Hypertension. denies: DM, Malignancy Parental Family History Reviewed: Yes Children Family History Reviewed: No Sibling(s) Family History Reviewed.: Yes Medication/Allergy Home Medications: Citalopram Hydrobromide [Celexa 20 mg Tablet] 20 mg PO DAILY #14 tablet 04/03/19 Lamotrigine 200 mg PO QAM 05/27/19 Allergies/Adverse Reactions: No Known Allergies Allergy (Verified 04/03/19 11:20) Review of Systems Review of Systems: Patient has provided limited cooperativity for a review of systems and the i nformation may therefore be less than fully accurate. Constitutional: ABSENT: chills, fever(s) Eyes: ABSENT: visual disturbances, other - Eye pain Ears: ABSENT: hearing changes, other - Ear pain Nose, Mouth, and Throat: ABSENT: headache(s), mouth pain Cardiovascular: ABSENT: chest pain, palpitations Respiratory: ABSENT: cough, dyspnea Gastrointestinal: ABSENT: abdominal pain, constipation, diarrhea, nausea, vomiting Genitourinary: ABSENT: dysuria, hematuria Musculoskeletal: ABSENT: joint swelling, muscle weakness Integumentary: ABSENT: pruritus, rash Neurological: ABSENT: confusion, convulsions, focal weakness, memory loss, syncope Psychiatric: ABSENT: anxiety, depression Endocrine: ABSENT: cold intolerance, heat intolerance Hematologic/Lymphatic: ABSENT: easy bleeding, easy bruising Physical Exam Vital Signs: Temp Pulse Resp BP Pulse Ox 98 F 19 115/53 L 100 05/27/19 20:01 05/27/19 20:01 05/27/19 20:01 05/27/19 20:01 Intake & Output 05/25/19 05/26/19 05/27/19 23:59 23:59 23:59 Weight 95.254 kg General appearance: PRESENT: no acute distress, obese, other - Does not resist or assist in exam. Is generally withdrawn. Head exam: PRESENT: atraumatic, normocephalic Eye exam: PRESENT: conjunctiva pink. ABSENT: conjunctival injection, scleral icterus Ear exam: PRESENT: normal external ear exam. ABSENT: bleeding, drainage Mouth exam: PRESENT: dry mucosa, neck supple Neck exam: ABSENT: thyromegaly, tracheal deviation Respiratory exam: PRESENT: clear to auscultation josh, symmetrical, unlabored Cardiovascular exam: PRESENT: RRR. ABSENT: clicks, gallop, rubs Pulses: PRESENT: normal radial pulses, normal dorsalis pedis pul Vascular exam: PRESENT: normal capillary refill. ABSENT: pallor GI/Abdominal exam: PRESENT: normal bowel sounds, soft. ABSENT: tenderness Rectal exam: PRESENT: deferred Extremities exam: ABSENT: joint swelling, pedal edema Musculoskeletal exam: ABSENT: deformity, dislocation Neurological exam: PRESENT: alert, oriented to person, oriented to place, oriented to time, oriented to situation, CN II-XII grossly intact. ABSENT: motor sensory deficit Psychiatric exam: PRESENT: depressed, flat affect, other - Withdrawn Skin exam: PRESENT: dry, intact, warm. ABSENT: jaundice, rash, urticaria Results Laboratory Results: 05/27/19 19:05 05/27/19 19:05 05/27/19 05/27/19 05/27/19 19:05 19:05 19:05 WBC 6.2 RBC 2.97 L Hgb 7.9 L Hct 24.2 L MCV 81 MCH 26.4 L MCHC 32.5 RDW 14.9 H Plt Count 306 Seg Neutrophils % 59.6 Lymphocytes % 31.1 Monocytes % 6.4 Eosinophils % 2.6 Basophils % 0.3 Absolute Neutrophils 3.7 Absolute Lymphocytes 1.9 Absolute Monocytes 0.4 Absolute Eosinophils 0.2 Absolute Basophils 0.0 Sodium 136.8 L Potassium 3.9 Chloride 106 Carbon Dioxide 25 Anion Gap 6 BUN 9 Creatinine 0.84 Est GFR ( Amer) > 60 Est GFR (Non-Af Amer) > 60 Glucose 104 Calcium 8.6 Total Bilirubin 0.5 AST 33 Alkaline Phosphatase 40 Total Protein 6.7 Albumin 3.8 Serum HCG, Qual NEGATIVE Assessment and Plan - Diagnosis (1) Acetaminophen overdose Qualifiers: Encounter type: initial encounter Injury intent: intentional self-harm Qualified Code(s): T39.1X2A - Poisoning by 4-Aminophenol derivatives, intentional self-harm, initial encounter Is this a current diagnosis for this admission?: Yes Plan: Patient will be continued on an IV Mucomyst protocol in the ER with serial determinations of her hepatic enzymes. Patient was placed in IMCU with a sitter to observe her closely. Her acetaminophen level will be followed as appropriate. Daily laboratory evaluations including a CBC and metabolic profile will be obtained. (2) Bipolar disorder current episode depressed Qualifiers: Current episode severity: severe Psychotic features: without psychotic features Qualified Code(s): F31.4 - Bipolar disorder, current episode depressed, severe, without psychotic features Is this a current diagnosis for this admission?: Yes Plan: A psychiatric/psychologic consultation will be obtained as soon as possible. Patient will be continued on her usual bipolar regiment until recommendations for changes have been made. (3) CAMELIA (generalized anxiety disorder) Is this a current diagnosis for this admission?: Yes Plan: Patient will be continued on her usual regimen for generalized anxiety disorder until such time as psychiatric consultation directs changes in medications. (4) Cannabis abuse Is this a current diagnosis for this admission?: Yes Plan: Patient's cannabis abuse can be addressed at another time when she is more willing to cooperate and engage in conversation. - Time Time Spent with patient: 25-34 minutes Anticipated discharge: Other - Inpatient psychiatric facility - Inpatient Certification Based on my medical assessment, after consideration of the patient's comorbidi ties, presenting symptoms, or acuity I expect that the services needed warrant INPATIENT care.: Yes I certify that my determination is in accordance with my understanding of [employer]'s requirements for reasonable and necessary INPATIENT services [42 CFR 412.3e].: Yes Medical Necessity: Need Close Monitoring Due to Risk of Patient Decompensation, Need For Continuous Telemetry Monitoring, Risk of Complication if Not Cared For in Hospital, Risk of Diagnosis Which Will Require Inpatient Eval/Care/Monitoring
[2019-05-28] MEDS ORDERED: ACETYLCYSTEINE INJ 6000 MG/30 ML IV ONE ×2 (00:06)
[2019-05-28] MEDS ORDERED: WATER IV ONE (01:00)
[2019-05-28] MEDS ORDERED: ACETYLCYSTEINE IV ONE (01:00)
[2019-05-28] MEDS ORDERED: DEXTROSE 5% IV ONE (01:00)
[2019-05-28] MEDS: HEPARIN SOD (PORCINE) 5,000 UNIT/ML 1 ML VIAL SUBCUT SCH ×4 (01:41→22:09)
[2019-05-28 06:13] LABS: HEMATOCRIT 25.3 % (36.0-47.0); HEMOGLOBIN 8.2 g/dL (12.0-15.5); MEAN CORPUSCULAR HEMOGLOBIN 25.7 pg (27.0-33.4); MEAN CORPUSCULAR HGB CONC 32.3 g/dL (32.0-36.0); MEAN CORPUSCULAR VOLUME 79 fl (80-97); PLATELET COUNT 299 10^3/uL (150-450); RED BLOOD COUNT 3.18 10^6/uL (3.72-5.28); RED CELL DISTRIBUTION WIDTH 14.8 % (11.5-14.0); WHITE BLOOD COUNT 5.9 10^3/uL (4.0-10.5)
[2019-05-28] MEDS: PANTOPRAZOLE SODIUM 40 MG TABLET.DR PO SCH ×2 (06:15→16:14)
[2019-05-28 06:34] LABS: ALBUMIN 3.3 g/dL (3.5-5.0); ALKALINE PHOSPHATASE 40 U/L (38-126); ANION GAP 7 (5-19); ASPARTATE AMINO TRANSFERASE 19 U/L (14-36); BILIRUBIN,DIRECT 0.2 mg/dL (0.0-0.4); BILIRUBIN,TOTAL 0.4 mg/dL (0.2-1.3); BLOOD UREA NITROGEN 6 mg/dL (7-20); CALCIUM 8.5 mg/dL (8.4-10.2); CARBON DIOXIDE 23 mmol/L (22-30); CHLORIDE 106 mmol/L (98-107); GLUCOSE 95 mg/dL (75-110); POTASSIUM 3.6 mmol/L (3.6-5.0); TOTAL PROTEIN 5.8 g/dL (6.3-8.2)
[2019-05-28] MEDS: CITALOPRAM HYDROBROMIDE 20 MG TABLET PO SCH (09:38)
[2019-05-28] MEDS: LAMOTRIGINE 100 MG TABLET PO SCH (09:38)
--- NOTE | 2019-05-28 11:13 | Progress Note Acknowledgement ---
Progress Note Acknowledgement Progess Note Acknowledgement: I, the undersigned member of the medical staff with appropriate privileges and with supervisory authority over [Theo Borjas], a dependent practice allied health professional, acknowledge that I have reviewed the progress notes entered on this patient, and in my professional judgment believe that the assessment made and/or any care evidenced was appropriate
[2019-05-28 11:30] LABS: ABSOLUTE RETICS # 0.051 10^6/uL (0.028-0.122); RETICULOCYTE COUNT (AUTO) 1.62 % (0.66-2.85)
[2019-05-28 11:43] LABS: IRON(TIBC) 33.9 ug/dL (37-170)
--- NOTE | 2019-05-28 11:45 | PDOC PROGRESS REPORT ---
Subjective Progress Note for:: 05/28/19 Subjective:: No complaints this a.m. Reason For Visit: ACUTE TYLENOL OD Physical Exam Vital Signs: Temp Pulse Resp BP Pulse Ox 97.3 F 67 18 124/73 99 05/28/19 07:39 05/28/19 07:39 05/28/19 07:39 05/28/19 07:39 05/28/19 07:39 Intake & Output 05/27/19 05/28/19 05/29/19 06:59 06:59 06:59 Output Total 0 Balance 0 Weight 95 kg General appearance: PRESENT: no acute distress, well-developed, well-nourished Head exam: PRESENT: atraumatic, normocephalic Eye exam: PRESENT: conjunctiva pink, EOMI, PERRLA. ABSENT: scleral icterus Ear exam: PRESENT: normal external ear exam Mouth exam: PRESENT: moist, tongue midline Neck exam: ABSENT: carotid bruit, JVD, lymphadenopathy, thyromegaly Respiratory exam: PRESENT: clear to auscultation josh. ABSENT: rales, rhonchi, wheezes Cardiovascular exam: PRESENT: RRR. ABSENT: diastolic murmur, rubs, systolic murmur Pulses: PRESENT: normal dorsalis pedis pul Vascular exam: PRESENT: normal capillary refill GI/Abdominal exam: PRESENT: normal bowel sounds, soft. ABSENT: distended, guarding, mass, organolmegaly, rebound, tenderness Rectal exam: PRESENT: deferred Extremities exam: PRESENT: full ROM. ABSENT: calf tenderness, clubbing, pedal edema Neurological exam: PRESENT: alert, awake, oriented to person, oriented to place, oriented to time, oriented to situation, CN II-XII grossly intact. ABSENT: motor sensory deficit Psychiatric exam: PRESENT: appropriate affect, normal mood. ABSENT: homicidal ideation, suicidal ideation Skin exam: PRESENT: dry, intact, warm. ABSENT: cyanosis, rash Results Laboratory Results: 05/28/19 05:34 05/28/19 05:34 05/27/19 05/27/19 05/27/19 19:05 19:05 19:05 WBC 6.2 RBC 2.97 L Hgb 7.9 L Hct 24.2 L MCV 81 MCH 26.4 L MCHC 32.5 RDW 14.9 H Plt Count 306 Seg Neutrophils % 59.6 Lymphocytes % 31.1 Monocytes % 6.4 Eosinophils % 2.6 Basophils % 0.3 Absolute Neutrophils 3.7 Absolute Lymphocytes 1.9 Absolute Monocytes 0.4 Absolute Eosinophils 0.2 Absolute Basophils 0.0 Retic Count (auto) Sodium 136.8 L Potassium 3.9 Chloride 106 Carbon Dioxide 25 Anion Gap 6 BUN 9 Creatinine 0.84 Est GFR ( Amer) > 60 Est GFR (Non-Af Amer) > 60 Glucose 104 Calcium 8.6 Magnesium Total Bilirubin 0.5 AST 33 Alkaline Phosphatase 40 Total Protein 6.7 Albumin 3.8 Serum HCG, Qual NEGATIVE 05/28/19 05/28/19 05/28/19 05:34 05:34 05:34 WBC 5.9 RBC 3.18 L Hgb 8.2 L Hct 25.3 L MCV 79 L MCH 25.7 L MCHC 32.3 RDW 14.8 H Plt Count 299 Seg Neutrophils % Lymphocytes % Monocytes % Eosinophils % Basophils % Absolute Neutrophils Absolute Lymphocytes Absolute Monocytes Absolute Eosinophils Absolute Basophils Retic Count (auto) 1.62 Sodium 135.9 L Potassium 3.6 Chloride 106 Carbon Dioxide 23 Anion Gap 7 BUN 6 L Creatinine 0.72 Est GFR ( Amer) > 60 Est GFR (Non-Af Amer) > 60 Glucose 95 Calcium 8.5 Magnesium 1.9 Total Bilirubin 0.4 AST 19 Alkaline Phosphatase 40 Total Protein 5.8 L Albumin 3.3 L Serum HCG, Qual Assessment and Plan - Diagnosis (1) Acetaminophen overdose Qualifiers: Encounter type: initial encounter Injury intent: intentional self-harm Qualified Code(s): T39.1X2A - Poisoning by 4-Aminophenol derivatives, intentional self-harm, initial encounter Is this a current diagnosis for this admission?: Yes Plan: Patient will be continued on an IV Mucomyst protocol in the ER with serial determinations of her hepatic enzymes. Patient was placed in IMCU with a sitter to observe her closely. Her acetaminophen level will be followed as a ppropriate. Daily laboratory evaluations including a CBC and metabolic profile will be obtained. May 31, 2019-patient completed her Mucomyst to call. I will repeat her Tylenol level in the a.m. Poison control has been notified. Patient is placed IVC until site consider (2) Bipolar disorder current episode depressed Qualifiers: Current episode severity: severe Psychotic features: without psychotic features Qualified Code(s): F31.4 - Bipolar disorder, current episode depressed, severe, without psychotic features Is this a current diagnosis for this admission?: Yes Plan: A psychiatric/psychologic consultation will be obtained as soon as possible. Patient will be continued on her usual bipolar regiment until recommendations for changes have been made. May 28, 2019-await psych consult. May change plan of care at that time as appropriate. She will be continued on her bipolar regimen until that point. (3) Suicide attempt Is this a current diagnosis for this admission?: Yes Plan: May 28, 2019-psych consult. IVC until they see the patient. (4) CAMELIA (generalized anxiety disorder) Is this a current diagnosis for this admission?: Yes Plan: Patient will be continued on her usual regimen for generalized anxiety disorder until such time as psychiatric consultation directs changes in medications. May 28, 2019-continue home antianxiety medication - Time Time Spent with patient: 15-24 minutes - Inpatient Certification Based on my medical assessment, after consideration of the patient's comorbidities, presenting symptoms, or acuity I expect that the services needed warrant INPATIENT care.: Yes I certify that my determination is in accordance with my understanding of Medicare's requirements for reasonable and necessary INPATIENT services [42 CFR 412.3e].: Yes Medical Necessity: Other - Psychiatric hold, suicide precaution
[2019-05-28 12:18] LABS: FERRITIN 5.41 ng/mL (6.2-137.0)
[2019-05-28 19:57] LABS: ALBUMIN 3.6 g/dL (3.5-5.0); ALKALINE PHOSPHATASE 42 U/L (38-126); ASPARTATE AMINO TRANSFERASE 19 U/L (14-36); BILIRUBIN,DIRECT 0.1 mg/dL (0.0-0.4); BILIRUBIN,TOTAL 0.2 mg/dL (0.2-1.3); TOTAL PROTEIN 5.9 g/dL (6.3-8.2)
--- NOTE | 2019-05-28 20:04 | PSYCHOLOGICAL NOTE ---
Psych Note - Psych Note Date seen by psych provider: 05/28/19 Psych Note: Presenting Problem: Tylenol OD, Acetaminophen level was 113 initially, guarded, said lots going on, not consistent with outpatient provider [place], seen by [facility] end March 2019 for SI no intent. Diagnosis: OD Bipolar Medication recommendations made by the psychiatric medical provider, Dr. Abigail MD., includes: Discontinue Celexa 20MG daily Continue Lamictal 200MG QD for mood stabilization Impression/Plan: Recommendation for IVC and seek inpatient placement. Patient had an intentional OD, is guarded about why, was seen end March 2019 for SI and not consistent with outpatient provider. Consulted with Dr. Nails regarding the management and care of patient.
[2019-05-29] MEDS: HEPARIN SOD (PORCINE) 5,000 UNIT/ML 1 ML VIAL SUBCUT SCH ×3 (06:06→21:31)
[2019-05-29] MEDS: PANTOPRAZOLE SODIUM 40 MG TABLET.DR PO SCH ×2 (06:07→16:52)
[2019-05-29 06:17] LABS: HEMATOCRIT 25.3 % (36.0-47.0); HEMOGLOBIN 8.2 g/dL (12.0-15.5); MEAN CORPUSCULAR HEMOGLOBIN 26.2 pg (27.0-33.4); MEAN CORPUSCULAR HGB CONC 32.6 g/dL (32.0-36.0); MEAN CORPUSCULAR VOLUME 81 fl (80-97); PLATELET COUNT 296 10^3/uL (150-450); RED BLOOD COUNT 3.14 10^6/uL (3.72-5.28); RED CELL DISTRIBUTION WIDTH 14.6 % (11.5-14.0); WHITE BLOOD COUNT 5.4 10^3/uL (4.0-10.5)
[2019-05-29 06:48] LABS: ALBUMIN 3.5 g/dL (3.5-5.0); ALKALINE PHOSPHATASE 46 U/L (38-126); ANION GAP 6 (5-19); ASPARTATE AMINO TRANSFERASE 19 U/L (14-36); BILIRUBIN,DIRECT 0.2 mg/dL (0.0-0.4); BILIRUBIN,TOTAL 0.3 mg/dL (0.2-1.3); BLOOD UREA NITROGEN 7 mg/dL (7-20); CALCIUM 8.6 mg/dL (8.4-10.2); CARBON DIOXIDE 24 mmol/L (22-30); CHLORIDE 107 mmol/L (98-107); GLUCOSE 76 mg/dL (75-110); POTASSIUM 4.3 mmol/L (3.6-5.0)
[2019-05-29 06:50] LABS: ACETAMINOPHEN < 10 ug/mL (10-30)
[2019-05-29] MEDS: LAMOTRIGINE 100 MG TABLET PO SCH (09:05)
[2019-05-29] MEDS: CITALOPRAM HYDROBROMIDE 20 MG TABLET PO SCH (09:05)
--- NOTE | 2019-05-29 11:58 | PDOC PROGRESS REPORT ---
Subjective Progress Note for:: 05/29/19 Subjective:: No complaints this a.m. May 29, 2019-no complaints this a.m. Reason For Visit: ACUTE TYLENOL OD Physical Exam Vital Signs: Temp Pulse Resp BP Pulse Ox 97.7 F 62 11 L 108/70 96 05/29/19 07:51 05/29/19 07:51 05/29/19 07:51 05/29/19 07:51 05/29/19 07:51 Intake & Output 05/28/19 05/29/19 05/30/19 06:59 06:59 06:59 Intake Total 936 Output Total 0 Balance 0 936 Weight 95 kg 95.3 kg General appearance: PRESENT: no acute distress, well-developed, well-nourished Head exam: PRESENT: atraumatic, normocephalic Eye exam: PRESENT: conjunctiva pink, EOMI, PERRLA. ABSENT: scleral icterus Ear exam: PRESENT: normal external ear exam Mouth exam: PRESENT: moist, tongue midline Neck exam: ABSENT: carotid bruit, JVD, lymphadenopathy, thyromegaly Respiratory exam: PRESENT: clear to auscultation josh. ABSENT: rales, rhonchi, wheezes Cardiovascular exam: PRESENT: RRR. ABSENT: diastolic murmur, rubs, systolic murmur Pulses: PRESENT: normal dorsalis pedis pul Vascular exam: PRESENT: normal capillary refill GI/Abdominal exam: PRESENT: normal bowel sounds, soft. ABSENT: distended, guarding, mass, organolmegaly, rebound, tenderness Rectal exam: PRESENT: deferred Extremities exam: PRESENT: full ROM. ABSENT: calf tenderness, clubbing, pedal edema Neurological exam: PRESENT: alert, awake, oriented to person, oriented to place, oriented to time, oriented to situation, CN II-XII grossly intact. ABSENT: motor sensory deficit Psychiatric exam: PRESENT: appropriate affect, normal mood. ABSENT: homicidal ideation, suicidal ideation Skin exam: PRESENT: dry, intact, warm. ABSENT: cyanosis, rash Results Laboratory Results: 05/29/19 05:43 05/29/19 05:43 05/28/19 05/28/19 05/29/19 05:34 19:28 05:43 WBC RBC Hgb Hct MCV MCH MCHC RDW Plt Count Sodium 137.3 Potassium 4.3 Chloride 107 Carbon Dioxide 24 Anion Gap 6 BUN 7 Creatinine 0.82 Est GFR ( Amer) > 60 Glucose 76 Calcium 8.6 Iron 33.9 L TIBC 321 % Saturation 11 Ferritin 5.41 L Total Bilirubin 0.2 0.3 AST 19 19 Alkaline Phosphatase 42 46 Total Protein 5.9 L 6.0 L Albumin 3.6 3.5 Vitamin B12 391.0 Folate 8.90 05/29/19 05:43 WBC 5.4 RBC 3.14 L Hgb 8.2 L Hct 25.3 L MCV 81 MCH 26.2 L MCHC 32.6 RDW 14.6 H Plt Count 296 Sodium Potassium Chloride Carbon Dioxide Anion Gap BUN Creatinine Est GFR ( Amer) Glucose Calcium Iron TIBC % Saturation Ferritin Total Bilirubin AST Alkaline Phosphatase Total Protein Albumin Vitamin B12 Folate Assessment and Plan - Diagnosis (1) Acetaminophen overdose Qualifiers: Encounter type: initial encounter Injury intent: intentional self-harm Qualified Code(s): T39.1X2A - Poisoning by 4-Aminophenol derivatives, intentional self-harm, initial encounter Is this a current diagnosis for this admission?: Yes Plan: Patient will be continued on an IV Mucomyst protocol in the ER with serial determinations of her hepatic enzymes. Patient was placed in IMCU with a sitter to observe her closely. Her acetaminophen level will be followed as appropr iate. Daily laboratory evaluations including a CBC and metabolic profile will be obtained. May 28, 2019-patient completed her Mucomyst to call. I will repeat her Tylenol level in the a.m. Poison control has been notified. Patient is placed IVC until site consider May 29, 2019-patient completed Mucomyst. Tylenol level is down to less than 10 at this time. We will continue to follow (2) Bipolar disorder current episode depressed Qualifiers: Current episode severity: severe Psychotic features: without psychotic f eatures Qualified Code(s): F31.4 - Bipolar disorder, current episode depr essed, severe, without psychotic features Is this a current diagnosis for this admission?: Yes Plan: A psychiatric/psychologic consultation will be obtained as soon as possible. Patient will be continued on her usual bipolar regiment until recommendations for changes have been made. May 28, 2019-await psych consult. May change plan of care at that time as appropriate. She will be continued on her bipolar regimen until that point. May 29, 2019-patient did have psych consult. They recommend IVC and inpatient placement. Also discontinue Celexa and continue Lamictal 200 mg p.o. daily (3) Suicide attempt Is this a current diagnosis for this admission?: Yes Plan: May 28, 2019-psych consult. IVC until they see the patient. May 29, 2019-psych has stated patient needs IVC and inpatient placement. We will continue to follow patient until she is placed (4) CAMELIA (generalized anxiety disorder) Is this a current diagnosis for this admission?: Yes Plan: Patient will be continued on her usual regimen for generalized anxiety disorder until such time as psychiatric consultation directs changes in medications. May 28, 2019-continue home antianxiety medication May 29, 2019-continue Lamictal hopefully this will stabilize her mood and help with any anxiety she may have (5) Iron deficiency anemia Is this a current diagnosis for this admission?: Yes Plan: May 29, 2019-ferric carboxymaltose 750 mg IV x1. Start patient on ferrous sulfate 325 mg p.o. daily tomorrow. - Time Time Spent with patient: 15-24 minutes - Inpatient Certification Based on my medical assessment, after consideration of the patient's comorbidities, presenting symptoms, or acuity I expect that the services needed warrant INPATIENT care.: Yes I certify that my determination is in accordance with my understanding of Medicare's requirements for reasonable and necessary INPATIENT services [42 CFR 412.3e].: Yes Medical Necessity: Other - IVC, awaiting inpatient placement for psych
[2019-05-29] MEDS ORDERED: FERRIC CARBOXYMALTOSE INJ 750 MG/15 ML VIAL IV SCH (12:00)
[2019-05-29] MEDS ORDERED: FERRIC CARBOXYMALTOSE 750 MG in NORMAL SALINE 250 ML IV ONE (14:00)
--- NOTE | 2019-05-29 14:43 | PSYCHOLOGICAL NOTE ---
Psych Note - Psych Note Date seen by psych provider: 05/29/19 Time seen by psych provider: 12:15 Psych Note: Reason for Consult: Overdose Patient intentional overdosed on Tylenol; Acetaminophen level was 113 initially. Check in conducted Clinician attempted to check in but patient would not wake up. Diagnosis: 296.89 (F31.81) bipolar 2 disorder per history Medication recommendations made by the psychiatric medical provider, Dr. Abigail MD., includes: Discontinue Celexa 20MG daily Continue Lamictal 200MG QD for mood stabilization Impression/Plan: Recommendation for continued IVC and seek inpatient placement. Patient had an intentional overdose. Patient would not effectively engage with yesterday's evaluation and refused to wake up for today's evaluation. Dr. Nails was consulted to care management of this patient; attending physicians in agreement with recommendations and disposition.
[2019-05-29 19:06] LABS: ALBUMIN 3.7 g/dL (3.5-5.0); ALKALINE PHOSPHATASE 43 U/L (38-126); ASPARTATE AMINO TRANSFERASE 21 U/L (14-36); BILIRUBIN,DIRECT 0.2 mg/dL (0.0-0.4); BILIRUBIN,TOTAL 0.4 mg/dL (0.2-1.3); TOTAL PROTEIN 6.2 g/dL (6.3-8.2)
[2019-05-30 05:44] LABS: ALBUMIN 3.6 g/dL (3.5-5.0); ALKALINE PHOSPHATASE 44 U/L (38-126); ASPARTATE AMINO TRANSFERASE 19 U/L (14-36); BILIRUBIN,DIRECT 0.3 mg/dL (0.0-0.4); BILIRUBIN,TOTAL 0.4 mg/dL (0.2-1.3); TOTAL PROTEIN 6.2 g/dL (6.3-8.2)
[2019-05-30] MEDS: HEPARIN SOD (PORCINE) 5,000 UNIT/ML 1 ML VIAL SUBCUT SCH ×3 (06:27→21:54)
[2019-05-30] MEDS: PANTOPRAZOLE SODIUM 40 MG TABLET.DR PO SCH ×2 (06:28→17:38)
[2019-05-30] MEDS: FERROUS SULFATE 325 MG TABLET PO SCH (09:43)
[2019-05-30] MEDS: LAMOTRIGINE 100 MG TABLET PO SCH (09:44)
[2019-05-30] MEDS ORDERED: TRIAMCINOLONE ACETONIDE 0.1% CREAM 15 GM TOP PRN (10:04)
--- NOTE | 2019-05-30 10:09 | PDOC PROGRESS REPORT ---
Subjective Progress Note for:: 05/30/19 Subjective:: No complaints this a.m. May 29, 2019-no complaints this a.m. May 30, 2019-rash under left arm pit Reason For Visit: ACUTE TYLENOL OD Physical Exam Vital Signs: Temp Pulse Resp BP Pulse Ox 97.8 F 69 20 128/75 H 99 05/30/19 03:18 05/30/19 07:00 05/30/19 03:18 05/30/19 03:18 05/30/19 03:18 Intake & Output 05/29/19 05/30/19 05/31/19 06:59 06:59 06:59 Intake Total 936 972 Balance 936 972 Weight 95.3 kg 95.9 kg General appearance: PRESENT: no acute distress, well-developed, well-nourished Head exam: PRESENT: atraumatic, normocephalic Eye exam: PRESENT: conjunctiva pink, EOMI, PERRLA. ABSENT: scleral icterus Ear exam: PRESENT: normal external ear exam Mouth exam: PRESENT: moist, tongue midline Neck exam: ABSENT: carotid bruit, JVD, lymphadenopathy, thyromegaly Respiratory exam: PRESENT: clear to auscultation josh. ABSENT: rales, rhonchi, wheezes Cardiovascular exam: PRESENT: RRR. ABSENT: diastolic murmur, rubs, systolic murmur Pulses: PRESENT: normal dorsalis pedis pul Vascular exam: PRESENT: normal capillary refill GI/Abdominal exam: PRESENT: normal bowel sounds, soft. ABSENT: distended, guarding, mass, organolmegaly, rebound, tenderness Rectal exam: PRESENT: deferred Extremities exam: PRESENT: full ROM. ABSENT: calf tenderness, clubbing, pedal edema Neurological exam: PRESENT: alert, awake, oriented to person, oriented to place, oriented to time, oriented to situation, CN II-XII grossly intact. ABSENT: motor sensory deficit Psychiatric exam: PRESENT: appropriate affect, normal mood. ABSENT: homicidal ideation, suicidal ideation Skin exam: PRESENT: dry, intact, warm, other - Small area of contact dermatitis in her left armpit. ABSENT: cyanosis, rash Results Laboratory Results: 05/29/19 05:43 05/29/19 05:43 05/29/19 05/30/19 18:40 05:12 Total Bilirubin 0.4 0.4 AST 21 19 Alkaline Phosphatase 43 44 Total Protein 6.2 L 6.2 L Albumin 3.7 3.6 Assessment and Plan - Diagnosis (1) Acetaminophen overdose Qualifiers: Encounter type: initial encounter Injury intent: intentional self-harm Qualified Code(s): T39.1X2A - Poisoning by 4-Aminophenol derivatives, intentional self-harm, initial encounter Is this a current diagnosis for this admission?: Yes Plan: Patient will be continued on an IV Mucomyst protocol in the ER with serial determinations of her hepatic enzymes. Patient was placed in IMCU with a sitter to observe her closely. Her acetaminophen level will be followed as appropriate. Daily laboratory evaluations including a CBC and metabolic profile will be obtained. May 28, 2019-patient completed her Mucomyst to call. I will repeat her Tylenol level in the a.m. Poison control has been notified. Patient is placed IVC until site consider May 29, 2019-patient completed Mucomyst. Tylenol level is down to less than 10 at this time. We will continue to follow May 30, 2019-stable. Patient continues on suicide precautions but her Tylenol level has normalized. (2) Bipolar disorder current episode depressed Qualifiers: Current episode severity: severe Psychotic features: without psychotic features Qualified Code(s): F31.4 - Bipolar disorder, current episode depressed, severe, without psychotic features Is this a current diagnosis for this admission?: Yes Plan: A psychiatric/psychologic consultation will be obtained as soon as possible. Patient will be continued on her usual bipolar regiment until recommendations for changes have been made. May 28, 2019-await psych consult. May change plan of care at that time as appropriate. She will be continued on her bipolar regimen until that point. May 29, 2019-patient did have psych consult. They recommend IVC and inpatient placement. Also discontinue Celexa and continue Lamictal 200 mg p.o. daily May 30, 2019-continue Lamictal (3) Suicide attempt Is this a current diagnosis for this admission?: Yes Plan: May 28, 2019-psych consult. IVC until they see the patient. May 29, 2019-psych has stated patient needs IVC and inpatient placement. We will continue to follow patient until she is placed May 30, 2019-awaiting inpatient psychiatric placement. Continue sitter at bedside for suicide precaution (4) CAMELIA (generalized anxiety disorder) Is this a current diagnosis for this admission?: Yes Plan: Patient will be continued on her usual regimen for generalized anxiety disorder until such time as psychiatric consultation directs changes in medications. May 28, 2019-continue home antianxiety medication May 29, 2019-continue Lamictal hopefully this will stabilize her mood and help with any anxiety she may have May 30, 2019-stable I do not see any signs of anxiety at this time (5) Iron deficiency anemia Is this a current diagnosis for this admission?: Yes Plan: May 29, 2019-ferric carboxymaltose 750 mg IV x1. Start patient on ferrous sulfate 325 mg p.o. daily tomorrow. May 30, 2019-ferrous sulfate 325 mg p.o. daily - Time Time Spent with patient: 15-24 minutes - Inpatient Certification Based on my medical assessment, after consideration of the patient's comorbidi ties, presenting symptoms, or acuity I expect that the services needed warrant INPATIENT care.: Yes I certify that my determination is in accordance with my understanding of [employer]'s requirements for reasonable and necessary INPATIENT services [42 CFR 412.3e].: Yes Medical Necessity: Other - Suicide precautions
[2019-05-31 04:50] LABS: ABSOLUTE EOSINOPHILS # (AUTO) 0.2 10^3/uL (0.0-0.6); ABSOLUTE LYMPHOCYTES (AUTO) 1.9 10^3/uL (0.5-4.7); ABSOLUTE MONOCYTES (AUTO) 0.6 10^3/uL (0.1-1.4); ABSOLUTE NEUT (AUTO) 3.4 10^3/uL (1.7-8.2); BASOPHILS % (AUTO) 0.2 % (0-2); EOSINOPHILS % (AUTO) 3.4 % (0-6); HEMATOCRIT 25.8 % (36.0-47.0); HEMOGLOBIN 8.4 g/dL (12.0-15.5); LYMPHOCYTES % (AUTO) 30.9 % (13-45); MEAN CORPUSCULAR HEMOGLOBIN 26.2 pg (27.0-33.4); MEAN CORPUSCULAR HGB CONC 32.6 g/dL (32.0-36.0); MEAN CORPUSCULAR VOLUME 80 fl (80-97); MONOCYTES % (AUTO) 9.5 % (3-13); PLATELET COUNT 309 10^3/uL (150-450); RED BLOOD COUNT 3.22 10^6/uL (3.72-5.28); RED CELL DISTRIBUTION WIDTH 14.5 % (11.5-14.0); TOTAL CELLS COUNTED % (AUTO) 100 %; WHITE BLOOD COUNT 6.1 10^3/uL (4.0-10.5)
[2019-05-31 05:03] LABS: ALBUMIN 3.8 g/dL (3.5-5.0); ALKALINE PHOSPHATASE 45 U/L (38-126); ANION GAP 6 (5-19); ASPARTATE AMINO TRANSFERASE 36 U/L (14-36); BILIRUBIN,DIRECT 0.1 mg/dL (0.0-0.4); BILIRUBIN,TOTAL 0.2 mg/dL (0.2-1.3); BLOOD UREA NITROGEN 7 mg/dL (7-20); CARBON DIOXIDE 28 mmol/L (22-30); CHLORIDE 103 mmol/L (98-107); GLUCOSE 80 mg/dL (75-110); POTASSIUM 4.4 mmol/L (3.6-5.0); TOTAL PROTEIN 6.3 g/dL (6.3-8.2)
[2019-05-31] MEDS: HEPARIN SOD (PORCINE) 5,000 UNIT/ML 1 ML VIAL SUBCUT SCH ×3 (05:21→21:45)
[2019-05-31] MEDS: PANTOPRAZOLE SODIUM 40 MG TABLET.DR PO SCH ×2 (05:21→16:38)
[2019-05-31] MEDS: LAMOTRIGINE 100 MG TABLET PO SCH (10:28)
[2019-05-31] MEDS: FERROUS SULFATE 325 MG TABLET PO SCH (10:29)
--- NOTE | 2019-05-31 11:06 | PDOC PROGRESS REPORT ---
Subjective Progress Note for:: 05/31/19 Subjective:: 28 year old female who presented to the emergency room with an acute intentional overdose by ingestion of acetaminophen. She admits to taking 5500 mg extra strength Tylenol at approximately 17:30 this afternoon. She is unable/unwilling to explain her reasoning for the intentional overdose. She is withdrawn/evasive, does not make eye contact and has a very flat affect. No additional current history information can be obtained at this time. In the emergency room she was found to have an elevated acetaminophen level of greater than 100 with a 4-hour level being scheduled and patient was initiated on an IV Mucomyst protocol. She was subsequently admitted to the [facility] for further evaluation and treatment. 05/[id number]-[id number]-old female admitted with Tylenol overdose it is intentional overdose. Patient is medically cleared to go to inpatient psych facility. Reason For Visit: ACUTE TYLENOL OD Physical Exam Vital Signs: Temp Pulse Resp BP Pulse Ox 98.1 F 74 18 120/56 L 100 05/31/19 07:00 05/31/19 07:00 05/31/19 07:00 05/31/19 07:00 05/31/19 07:00 Intake & Output 05/30/19 05/31/19 06/01/19 06:59 06:59 06:59 Intake Total 972 488 Output Total 0 Balance 972 488 Weight 95.9 kg 94.2 kg General appearance: PRESENT: no acute distress Head exam: PRESENT: atraumatic Eye exam: PRESENT: PERRLA Mouth exam: PRESENT: moist, tongue midline Teeth exam: PRESENT: poor dentation Neck exam: ABSENT: carotid bruit, JVD, lymphadenopathy, thyromegaly Respiratory exam: PRESENT: decreased breath sounds Cardiovascular exam: PRESENT: RRR. ABSENT: diastolic murmur, rubs, systolic murmur Pulses: PRESENT: normal dorsalis pedis pul GI/Abdominal exam: PRESENT: normal bowel sounds, soft. ABSENT: distended, guarding, mass, organolmegaly, rebound, tenderness Rectal exam: PRESENT: deferred Extremities exam: PRESENT: full ROM. ABSENT: calf tenderness, clubbing, pedal edema Neurological exam: PRESENT: alert, awake, oriented to person, oriented to place, oriented to time, oriented to situation, CN II-XII grossly intact. ABSENT: motor sensory deficit Psychiatric exam: PRESENT: appropriate affect, normal mood. ABSENT: homicidal ideation, suicidal ideation Results Laboratory Results: 05/31/19 04:11 05/31/19 04:11 05/31/19 05/31/19 04:11 04:11 WBC 6.1 RBC 3.22 L Hgb 8.4 L Hct 25.8 L MCV 80 MCH 26.2 L MCHC 32.6 RDW 14.5 H Plt Count 309 Seg Neutrophils % 56.0 Sodium 136.9 L Potassium 4.4 Chloride 103 Carbon Dioxide 28 Anion Gap 6 BUN 7 Creatinine 0.88 Est GFR ( Amer) > 60 Glucose 80 Calcium 9.0 Magnesium 2.0 Total Bilirubin 0.2 AST 36 Alkaline Phosphatase 45 Total Protein 6.3 Albumin 3.8 Assessment and Plan - Diagnosis (1) Acetaminophen overdose Qualifiers: Encounter type: initial encounter Injury intent: intentional self-harm Qualified Code(s): T39.1X2A - Poisoning by 4-Aminophenol derivatives, intentional self-harm, initial encounter Is this a current diagnosis for this admission?: Yes Plan: Patient will be continued on an IV Mucomyst protocol in the ER with serial determinations of her hepatic enzymes. Patient was placed in IMCU with a sitter to observe her closely. Her acetaminophen level will be followed as a ppropriate. Daily laboratory evaluations including a CBC and metabolic profile will be obtained. May 28, 2019-patient completed her Mucomyst to call. I will repeat her Tylenol level in the a.m. Poison control has been notified. Patient is placed IVC until site consider May 29, 2019-patient completed Mucomyst. Tylenol level is down to less than 10 at this time. We will continue to follow May 30, 2019-stable. Patient continues on suicide precautions but her Tylenol level has normalized. 05/31/2019-patient is still under IVC commitment. One-to-one observation. Cleared by medical team to go to inpatient psych facility. (2) Bipolar disorder current episode depressed Qualifiers: Current episode severity: severe Psychotic features: without psychotic features Qualified Code(s): F31.4 - Bipolar disorder, current episode depressed, severe, without psychotic features Is this a current diagnosis for this admission?: Yes Plan: A psychiatric/psychologic consultation will be obtained as soon as possible. Patient will be continued on her usual bipolar regiment until recommendations for changes have been made. May 28, 2019-await psych consult. May change plan of care at that time as appropriate. She will be continued on her bipolar regimen until that point. May 29, 2019-patient did have psych consult. They recommend IVC and inpatient placement. Also discontinue Celexa and continue Lamictal 200 mg p.o. daily May 30, 2019-continue Lamictal 05/31/2019-patient is on Lamictal no complaints of anxiety or depression today. (3) Iron deficiency anemia Is this a current diagnosis for this admission?: Yes Plan: May 29, 2019-ferric carboxymaltose 750 mg IV x1. Start patient on ferrous sulfate 325 mg p.o. daily tomorrow. May 30, 2019-ferrous sulfate 325 mg p.o. daily (4) Suicide attempt Is this a current diagnosis for this admission?: Yes Plan: May 28, 2019-psych consult. IVC until they see the patient. May 29, 2019-psych has stated patient needs IVC and inpatient placement. We will continue to follow patient until she is placed May 30, 2019-awaiting inpatient psychiatric placement. Continue sitter at bedside for suicide precaution - Time Time Spent with patient: 25-34 minutes Smoking Cessation Education: over 10 minutes Medications reviewed and adjusted accordingly: Yes Anticipated discharge: Other
[2019-05-31 17:33] LABS: APPEARANCE,URINE CLOUDY; BILIRUBIN,URINE NEGATIVE (NEGATIVE); COLOR,URINE YELLOW; GLUCOSE, URINE NEGATIVE (NEGATIVE); KETONES,URINE NEGATIVE (NEGATIVE); LEUKOCYTE ESTERASE,URINE LARGE (NEGATIVE); NITRITE,URINE NEGATIVE (NEGATIVE); PROTEIN,URINE NEGATIVE (NEGATIVE); URINE SPECIFIC GRAVITY 1.017; UROBILINOGEN,URINE NEGATIVE mg/dL (<2.0)
[2019-06-01] MEDS: PANTOPRAZOLE SODIUM 40 MG TABLET.DR PO SCH (06:37)
[2019-06-01] MEDS: HEPARIN SOD (PORCINE) 5,000 UNIT/ML 1 ML VIAL SUBCUT SCH (06:40)
[2019-06-01 08:32] LABS: URINE AMPHETAMINES SCREEN NEGATIVE; URINE BARBITURATES SCREEN NEGATIVE; URINE BENZODIAZEPINES SCREEN NEGATIVE; URINE COCAINE SCREEN NEGATIVE; URINE MARIJUANA (THC) SCREEN NEGATIVE; URINE METHADONE SCREEN NEGATIVE; URINE PHENCYCLIDINE SCREEN NEGATIVE
[2019-06-01 08:54] VITALS: BP 124/57
[2019-06-01] MEDS: FERROUS SULFATE 325 MG TABLET PO SCH (09:11)
[2019-06-01] MEDS: LAMOTRIGINE 100 MG TABLET PO SCH (09:11)
--- NOTE | 2019-06-01 10:09 | PDOC TRANSFER SUMMARY ---
General Admission Date/PCP: 05/27/19 20:50 Resuscitation Status: Full Code - Transfer Diagnosis (1) Acetaminophen overdose Is this a current diagnosis for this admission?: Yes Diagnosis Summary: Patient will be continued on an IV Mucomyst protocol in the ER with serial determinations of her hepatic enzymes. Patient was placed in IMCU with a sitter to observe her closely. Her acetaminophen level will be followed as appropriate. Daily laboratory evaluations including a CBC and metabolic profile will be obtained. May 28, 2019-patient completed her Mucomyst to call. I will repeat her Tylenol level in the a.m. Poison control has been notified. Patient is placed IVC until site consider May 29, 2019-patient completed Mucomyst. Tylenol level is down to less than 10 at this time. We will continue to follow May 30, 2019-stable. Patient continues on suicide precautions but her Tylenol level has normalized. 05/31/2019-patient is still under IVC commitment. One-to-one observation. Cl eared by medical team to go to inpatient psych facility. 06/01/2019-patient is still under IVC commitment medically cleared to go to inpatient psych facility today. (2) Bipolar disorder current episode depressed Is this a current diagnosis for this admission?: Yes Diagnosis Summary: A psychiatric/psychologic consultation will be obtained as soon as possible. Patient will be continued on her usual bipolar regiment until recommendations for changes have been made. May 28, 2019-await psych consult. May change plan of care at that time as appropriate. She will be continued on her bipolar regimen until that point. May 29, 2019-patient did have psych consult. They recommend IVC and inpatient placement. Also discontinue Celexa and continue Lamictal 200 mg p.o. daily May 30, 2019-continue Lamictal 05/31/2019-patient is on Lamictal no complaints of anxiety or depression today. 06/01/2019-patient has history of bipolar disorder presently on Lamictal. Plan is to continue Lamictal and patient is getting transferred to inpatient psych facility. (3) Iron deficiency anemia Is this a current diagnosis for this admission?: Yes Diagnosis Summary: May 29, 2019-ferric carboxymaltose 750 mg IV x1. Start patient on ferrous sulfate 325 mg p.o. daily tomorrow. May 30, 2019-ferrous sulfate 325 mg p.o. daily 06/01/2019-patient has history of anemia of chronic disease and iron supplementations recommendation is to continue p.o. iron. (4) Suicide attempt Is this a current diagnosis for this admission?: Yes Diagnosis Summary: May 28, 2019-psych consult. IVC until they see the patient. May 29, 2019-psych has stated patient needs IVC and inpatient placement. We will continue to follow patient until she is placed May 30, 2019-awaiting inpatient psychiatric placement. Continue sitter at bedside for suicide precaution 06/01/2019-patient is medically cleared to go to inpatient psych facility. - Transfer Medications Home Medications: Lamotrigine 200 mg PO QAM 05/27/19 Transfer Medications: Current Medications Al Hydrox/Mg Hydrox/Simethicone (Maalox Plus Susp 30 Udcup) 30 ml PO Q6HP PRN PRN Reason: HEARTBURN Stop: 06/26/19 21:53 Ferrous Sulfate (Feosol 325 Mg Tablet) 325 mg PO DAILY [facility] Stop: 06/29/19 09:59 Last Admin: 06/01/19 09:11 Dose: 325 mg Documented by: Heparin Sodium (Porcine) (Heparin Inj 5,000 Units/Ml 1 Ml Vial) 5,000 unit SUBCUT Q8 [facility] Stop: 06/26/19 21:59 Last Admin: 06/01/19 06:40 Dose: Not Given Documented by: Lamotrigine (Lamictal 100 Mg Tablet) 200 mg PO DAILY [facility] Stop: 06/27/19 09:59 Last Admin: 06/01/19 09:11 Dose: 200 mg Documented by: Magnesium Hydroxide (Milk Of Magnesia 30 Ml Udcup) 30 ml PO HSP PRN PRN Reason: FOR CONSTIPATION Stop: 06/26/19 21:53 Nalbuphine HCl (Nubain Inj 10 Mg/1 Ml Ampule) 10 mg IV Q3HP PRN PRN Reason: FOR PAIN Stop: 06/03/19 21:53 Last Admin: 05/28/19 20:56 Dose: 10 mg Documented by: Ondansetron HCl (Zofran Inj/Pf 4 Mg/2 Ml Sdv) 4 mg IV Q4HP PRN PRN Reason: FOR NAUSEA/VOMITING Stop: 06/26/19 21:54 Pantoprazole Sodium (Protonix [address] Tablet) 40 mg PO BID@0600,1700 [facility] Stop: 06/27/19 05:59 Last Admin: 06/01/19 06:37 Dose: 40 mg Documented by: Sodium Chloride (Saline Flush 2.5 Ml Monoject Prefil Syrin) 2.5 ml IV Q8 [facility] Stop: 06/26/19 21:59 Last Admin: 06/01/19 06:39 Dose: 2.5 ml Documented by: Triamcinolone Acetonide (Aristocort 0.1% Cream 15 Gm) 1 applic TOP BIDP PRN PRN Reason: SKIN IRRITATION Stop: 06/29/19 10:03 - Allergies Allergies/Adverse Reactions: No Known Allergies Allergy (Verified 04/03/19 11:20) Hospital Course Hospital Course: 28 year old female who presented to the emergency room with an acute intentional overdose by ingestion of acetaminophen. She admits to taking 5500 mg extra strength Tylenol at approximately 17:30 this afternoon. She is unable/unwilling to explain her reasoning for the intentional overdose. She is withdrawn/evasive, does not make eye contact and has a very flat affect. No additional current history information can be obtained at this time. In the emergency room she was found to have an elevated acetaminophen level of greater than 100 with a 4-hour level being scheduled and patient was initiated on an IV Mucomyst protocol. She was subsequently admitted to the IMCU for further evaluation and treatment. [id number]-old female admitted with Tylenol overdose it is intentional overdose. Patient is medically cleared to go to inpatient psych facility. Physical Exam Vital Signs: Temp Pulse Resp BP Pulse Ox 98.2 F 70 12 124/57 L 100 06/01/19 07:39 06/01/19 07:39 06/01/19 07:39 06/01/19 07:39 06/01/19 07:39 Intake & Output 05/31/19 06/01/19 06/02/19 06:59 06:59 06:59 Intake Total 488 1240 Output Total 0 1500 Balance 488 -260 Weight 94.2 kg 95.2 kg General appearance: PRESENT: no acute distress Head exam: PRESENT: atraumatic Eye exam: PRESENT: PERRLA Mouth exam: PRESENT: moist, tongue midline Teeth exam: PRESENT: poor dentation Neck exam: ABSENT: carotid bruit, JVD, lymphadenopathy, thyromegaly Respiratory exam: PRESENT: decreased breath sounds Cardiovascular exam: PRESENT: RRR. ABSENT: diastolic murmur, rubs, systolic murmur GI/Abdominal exam: PRESENT: normal bowel sounds, soft. ABSENT: distended, guarding, mass, organolmegaly, rebound, tenderness Rectal exam: PRESENT: deferred Extremities exam: PRESENT: full ROM. ABSENT: calf tenderness, clubbing, pedal edema Neurological exam: PRESENT: alert, awake, oriented to person, oriented to place, oriented to time, oriented to situation, CN II-XII grossly intact. ABSENT: motor sensory deficit Psychiatric exam: PRESENT: appropriate affect, normal mood. ABSENT: homicidal ideation, suicidal ideation Results Laboratory Results: 05/31/19 04:11 05/31/19 04:11 05/31/19 15:40 Urine Color YELLOW Urine Appearance CLOUDY Urine pH 6.0 Ur Specific [place]ry 1.017 Urine Protein NEGATIVE Urine Glucose (UA) NEGATIVE Urine Ketones NEGATIVE Urine Blood LARGE H Urine Nitrite NEGATIVE Ur Leukocyte Esterase LARGE H Urine WBC (Auto) 20 Urine RBC (Auto) 2 Plan Discharge Plan: Patient is getting transferred to inpatient psych facility. Time Spent: Greater than 30 Minutes
== END 2019-06-01 10:36 | DRG 918 ==
LOC: ER 18:40 → EH 20:50 → 3W 23:17 → 5 05-30 11:23
PROVIDERS: ADMIT Emergency Medicine; ATTEND Emergency Medicine
DX: T39.1X2A Poisoning by 4-Aminophenol derivatives, intentional self-harm, initial encounter (principal); F31.9 Bipolar disorder, unspecified; F41.1 Generalized anxiety disorder; D50.9 Iron deficiency anemia, unspecified; F12.90 Cannabis use, unspecified, uncomplicated; Y92.59 Other trade areas as the place of occurrence of the external cause; Z75.1 Person awaiting admission to adequate facility elsewhere
CPT/HCPCS: 36415; 80048; 80053; 80076; 80307; 81001; 82607; 82728; 82746; 83540; 83550; 83735; 84703; 85025; 85027; 85045; 85610; 87070; 93005; 93010; 96365; 99291; J0132; J1439; J1644; J2300; J2405; J3490; J7050